=== PATIENT | female | born 1945 | race Caucasian/White ===

== ENCOUNTER → 2017-05-17 | Outpatient (CLI) | payer MEDICARE, BC ==
--- NOTE | 2017-05-17 13:28 | MR ---
EXAMINATION TYPE: MR cervical spine wo con DATE OF EXAM: 05/17/2017 COMPARISON: Prior MRI cervical spine 02/03/2015 HISTORY: other csp degeneration, csp radiculopathy TECHNIQUE: Multiplanar, multisequence images of the cervical spine were acquired. C2-C3: No evidence for degenerative disc disease. No disc bulge/herniation or protrusion. No Canal stenosis. Foramina are patent bilaterally. C3-C4: Small posterior disc bulge causes slight anterior mass effect on the thecal sac. No significan t foraminal encroachment or central stenosis. C4-C5: Posterior broad-based disc bulge causes minimal anterior mass effect on the thecal sac. No sig nificant foraminal encroachment or central stenosis. C5-C6: Mild left-sided foraminal encroachment due to lateral extension of endplate disc complex left greater than right. Small posterior extension of endplate disc complex causes minimal anterior mass e ffect on the thecal sac. C6-C7: Small posterior broad-based disc bulge causes minimal anterior mass effect on the thecal sac. No significant stenosis or foraminal encroachment. C7-T1: No evidence for degenerative disc disease. No disc bulge/herniation or protrusion. No Canal stenosis. Foramina are patent bilaterally. Cervical segments are intact. There is normal alignment. Cervical spinal cord is of normal signal. Craniovertebral junction relationships are within normal limits. Multilevel spondylosis is present, there is endplate discogenic marrow signal change, loss of disc height and signal present at C4-5, C 5-6. IMPRESSION: Findings are essentially stable. Degenerative disc disease as described.
== END | disposition home or self-care (01) ==
LOC: RADMRIMAIN 10:42
PROVIDERS: ATTEND Internal Medicine
DX: M50.10 Cervical disc disorder with radiculopathy, unspecified cervical region (principal)
CPT/HCPCS: 72141

== ENCOUNTER 2018-01-05 11:50 | Day surgery (SDC) | payer MEDICARE, BC ==
[2018-01-04 09:40] VITALS: BMI 22.8
[~2018-01-05 11:50] MED LIST: LACTATED RINGERS 1,000 ML IV SCH
[2018-01-05] MEDS ORDERED: LACTATED RINGERS 1,000 ML IV ONE (12:36)
[2018-01-05 12:57] VITALS: RESP 16; TEMP 96.7
[2018-01-05 13:09] LABS: HCT 35.5 % (34.0-46.0); HGB 12.3 gm/dL (11.4-16.0); MCH 32.1 pg (25.0-35.0); MCHC 34.6 g/dL (31.0-37.0); MCV 92.8 fL (80.0-100.0); Mean Platelet Volume 6.5; Platelet Count 314 k/uL (150-450); RBC 3.82 m/uL (3.80-5.40); WBC 5.5 k/uL (3.8-10.6)
[2018-01-05] MEDS ORDERED: MIDAZOLAM 2 MG/2 ML VIAL ONE (13:17)
[2018-01-05] MEDS ORDERED: PROPOFOL 10 MG/ML 20 ML VIAL IV ONE (13:17)
--- NOTE | 2018-01-05 13:40 | P.PCN ---
Date of Procedure: 01/05/18 Procedure(s) Performed: Brief history: Patient is a pleasant 72-year-old white female, scheduled for an elective upper endoscopy as well as colonoscopy as a part of evaluation of chronic diarrhea and intermittent lower abdominal pain for the last 3 months duration. She has been recently from 7-8 a day which are loose to watery in consistency but no blood or mucus in the stool. She had stool studies and were negative. She tried Questran as well as Lomotil with no help. Procedure performed: Esophagogastroduodenoscopy with biopsy Colonoscopy with biopsy Preoperative diagnosis: Chronic diarrhea and lower abdominal pain Anesthesia: MAC Procedure: After informed consent was obtained from the patient was brought into the endoscopy unit and IV sedation was administered by anesthesia under continuous monitoring. Initially upper endoscopy was done. The Olympus GF 160 video endoscope was inserted inserted into the mouth and esophagus intubated without any difficulty and was gradually advanced into the stomach and duodenum and carefully examined. The bulb and second part of the duodenum appeared normal. Abstinent from the duodenum to rule out celiac disease. The scope was then withdrawn into the stomach adequately insufflated with air and upon careful examination the antrum and body, cardia and fundus appeared normal. Small gastric polyps noted in the body of the stomach that were biopsied. The scope was then withdrawn into the esophagus. Small hiatal hernia noted. The GE junction was located at 40 cm to the incisors. It appeared slightly irregular with no erythema erosions.. Rest of the esophagus appeared normal. Patient tolerated the procedure well. At this time the patient continued to remain sedation. Initial digital rectal examination was normal. Olympus CF 160 video colonoscope was then inserted into the rectum and gradually advanced to the cecum without any difficulty. Careful examination was performed as the scope was gradually being withdrawn. The prep was excellent. The cecum, ascending colon, transverse colon, descending colon, sigmoid colon and rectum appeared normal. Random biopsies were done from ascending and descending colon to rule out microscopic/ collagenous colitis. Retroflexion was performed in the rectum and no lesions were noted. Patient tolerated the procedure well. Impression: 1. Upper endoscopy revealed small gastric polyps and small hiatal hernia. 2. Colonoscopy was essentially within normal limits with no evidence of colitis or colorectal neoplasia Recommendations: Findings of this examination were discussed with the patient as well as her family. She was advised to follow with the biopsy results. She'll be seen in office in 2 weeks.
[2018-01-05 14:01] VITALS: BP 136/73; PULSE 69
[2018-01-05 17:40] LABS: Erythrocyte Sedimentation Rate 13 mm/hr (0-20)
[2018-01-05 19:43] LABS: Gliadin AB IgA, Unit 1.2 U/mL
== END 2018-01-05 14:24 | disposition home or self-care (01) ==
LOC: ORWHC2ENDO 11:50
PROVIDERS: ATTEND Internal Medicine Gastroenterology
DX: K29.80 Duodenitis without bleeding (principal); K31.7 Polyp of stomach and duodenum; K52.839 Microscopic colitis, unspecified; K44.9 Diaphragmatic hernia without obstruction or gangrene; I10 Essential (primary) hypertension; J44.9 Chronic obstructive pulmonary disease, unspecified; E07.9 Disorder of thyroid, unspecified; K21.9 Gastro-esophageal reflux disease without esophagitis; Z79.890 Hormone replacement therapy; Z79.899 Other long term (current) drug therapy; Z79.51 Long term (current) use of inhaled steroids
CPT/HCPCS: 85652; 85027; 86140; 83516 ×4; 45380; 43239; J2250; J2704; 88305; 88313

== ENCOUNTER → 2018-02-14 | Outpatient (CLI) | payer MEDICARE, BC ==
--- NOTE | 2018-02-14 12:02 | BD ---
EXAMINATION TYPE: Axial Bone Density DATE OF EXAM: 02/14/2018 CLINICAL HISTORY: Height: 62.25 Weight: 124 FRAX RISK QUESTIONS: Alcohol (3 or more units per day): no Family History (Parent hip fracture): yes, mother Glucocorticoids (More than 3mos): Symbicort on & off (Ex: prednisone, prednisolone, methylprednisolone, dexamethasone, and hydrocortisone). History of Fracture in Adulthood: no Secondary Osteoporosis: 1. Type 1 Diabetes: no 2. Hyperthyroidism: no 3. Menopause before 45: yes, hysterectomy age 38 4. Malnutrition: big weight loss due to colitis 5. Chronic liver disease: no Rheumatoid Arthritis: no Current Tobacco Use: no RISK FACTORS HISTORY OF: Family History of Osteoporosis: yes Active: yes Diet low in dairy products/other sources of calcium: somewhat, but one serving of ice cream a day Postmenopausal woman: yes Take estrogen and/or progesterone medications: not now How long: age [age] Lost more than 2 inches in height since high school: unsure, states height was perhaps 64 inches at o ne time Frequent falls: no Poor Health: somewhat Hyperparathyroidism: no Adrenal Insufficiency: no MEDICATIONS: Prednisone or other steroids: Symbicort How Long: on & off Thyroid Medications: yes Which medication: Levothyroxine How Long: less than 10 years Osteoporosis Medications: no Additional Medications: calcium Additional History: degenerative disc disease C-Spine EXAM MEASUREMENTS: Bone mineral densitometry was performed using the [employer] System. Bone mineral density as measured about the Lumbar spine is: ----- L1-L4(G/cm2): 1.106 T Score Values are as follows: ----- L2: -1.3 ----- L3: -0.2 ----- L4: 0.0 ----- L1-L4: -0.6 Bone mineral density BASELINE Bone mineral density about the R hip (g/cm2): 0.976 Bone mineral density about the L hip (g/cm2): 0.860 T Score values are as follows: -----R Neck: -0.4 -----L Neck: -1.3 -----R Total: -0.5 -----L Total: -1.0 Bone mineral density BASELINE IMPRESSION: Osteopenia about the bilateral femora. NOTE: T-SCORE=SD OF THE YOUNG ADULT MEAN.
--- NOTE | 2018-02-16 10:18 | MM ---
Reason for exam: screening (asymptomatic). Last mammogram was performed 4 years and 6 months ago. History: Patient is postmenopausal. Took estrogen for 2 years beginning at age 38. Physical Findings: A clinical breast exam by your physician is recommended on an annual basis and results should be correlated with mammographic findings. MG 3D Screening Mammo W/Cad Bilateral CC and MLO view(s) were taken. Prior study comparison: August 15, 2013, mammogram, performed at [facility]. August 12, 2011, mammogram, performed at [facility]. The breast tissue is heterogeneously dense. This may lower the sensitivity of mammography. No significant changes when compared with prior studies. ASSESSMENT: Negative, BI-RAD 1 RECOMMENDATION: Routine screening mammogram of both breasts in 1 year.
== END | disposition home or self-care (01) ==
LOC: RADMAMWWP 09:35
PROVIDERS: ATTEND Internal Medicine
DX: Z12.31 Encounter for screening mammogram for malignant neoplasm of breast (principal); M85.88 Other specified disorders of bone density and structure, other site; Z78.0 Asymptomatic menopausal state
CPT/HCPCS: 77063; 77067; 77080

== ENCOUNTER → 2018-11-07 | Outpatient (CLI) | payer MEDICARE, BC ==
[2018-11-07 17:27] LABS: Basophils % (A) 1 %; Eosinophils # (A) 0.2 k/uL (0-0.7); Eosinophils % (A) 2 %; HCT 37.8 % (34.0-46.0); HGB 12.6 gm/dL (11.4-16.0); Lymphocytes # (A) 1.2 k/uL (1.0-4.8); Lymphocytes % (A) 17 %; MCH 32.8 pg (25.0-35.0); MCHC 33.4 g/dL (31.0-37.0); MCV 98.3 fL (80.0-100.0); Mean Platelet Volume 6.8; Monocytes # (A) 0.4 k/uL (0-1.0); Monocytes % (A) 6 %; Neutrophils # (A) 4.9 k/uL (1.3-7.7); Neutrophils % (A) 73 %; Platelet Count 343 k/uL (150-450); RBC 3.84 m/uL (3.80-5.40); RDW 12.7 % (11.5-15.5); WBC 6.8 k/uL (3.8-10.6)
[2018-11-07 18:30] LABS: Erythrocyte Sedimentation Rate 17 mm/hr (0-20)
[2018-11-08 00:29] LABS: ALT 20 U/L (8-44); AST 25 U/L (13-35); Albumin/Globulin Ratio 2.15 (1.60-3.17); Alkaline Phosphatase 65 U/L (41-126); C Reactive Protein <0.4 mg/dL (0.0-0.8); Calcium 9.6 mg/dL (8.7-10.3); Carbon Dioxide 27.6 mmol/L (21.6-31.8); Chloride 104 mmol/L (96-109); Glucose 80 mg/dL (70-110); Potassium 3.7 mmol/L (3.5-5.5); Sodium 140 mmol/L (135-145); Total Bilirubin 0.2 mg/dL (0.3-1.2); Total Protein 6.3 g/dL (6.2-8.2)
== END ==
LOC: LABWHC1 16:00
PROVIDERS: ATTEND Internal Medicine Gastroenterology
DX: K52.9 Noninfective gastroenteritis and colitis, unspecified (principal); R63.4 Abnormal weight loss
CPT/HCPCS: 36415; 80053; 85025; 85652; 86140

== ENCOUNTER → 2018-11-08 | Outpatient (CLI) | payer MEDICARE, BC | END | disposition home or self-care (01) | LOC: LABWHC1 15:43 | PROVIDERS: ATTEND Internal Medicine Gastroenterology | DX: R63.4 Abnormal weight loss (principal); K52.9 Noninfective gastroenteritis and colitis, unspecified | CPT/HCPCS: 82656 ==

== ENCOUNTER → 2018-11-16 | Outpatient (CLI) | payer MEDICARE, BC ==
--- NOTE | 2018-11-16 15:07 | CT ---
EXAMINATION TYPE: CT abdomen pelvis w con DATE OF EXAM: 11/16/2018 COMPARISON: None INDICATION: History of colitis. 30 lb weight loss. DLP: 766 mGycm, Automated exposure control for dose reduction was used. CONTRAST: 100 mL of Isovue 300. Study performed with Oral Contrast TECHNIQUE: Axial images were obtained from above the diaphragm to the pubic rami in the axial plane a t 5 mm thick sections. Reconstructed images are reviewed on the computer in the coronal plane. FINDINGS: Limited CT sections are obtained the lung bases. The lung bases are clear. CT ABDOMEN: Liver: Normal Spleen: Normal Pancreas: Normal Adrenal glands: The adrenal glands are normal. Gallbladder: Normal Kidneys: No masses are evident. No hydronephrosis is present. No cysts are present. Delayed images were obtained through the kidneys,. There is ar 1.9 cm cyst measuring 9 Hounsfield units at superior lateral left kidney. Aorta: Vascular calcification is within the aorta. Inferior vena cava: Normal. CT PELVIS: Loops of bowel within the abdomen and pelvis are normal. There are loops of bowel which are incom pletely distended or lack oral contrast limiting their evaluation. Fecal debris is scattered through the colon. Contrast extends to the descending colon region. Appendix: Not identified. No suspicious tubular structures or inflammatory changes are evident. Urinary bladder: Normal. Genitourinary structures: Uterus is unremarkable. Adnexal regions are clear. No free fluid is within the pelvis or abdomen. Osseous structures: No suspicious lytic or sclerotic lesions. Mild facet degenerative changes in lowe r lumbar spine IMPRESSIONS: 1. Fecal debris within the colon. No obstruction is evident. No suspicious changes for acute colitis is evident.
== END | disposition home or self-care (01) ==
LOC: RADCTMAIN 12:43
PROVIDERS: ATTEND Internal Medicine Gastroenterology
DX: R19.5 Other fecal abnormalities (principal); R63.4 Abnormal weight loss
CPT/HCPCS: 74177; Q9967

== ENCOUNTER → 2019-04-05 | Outpatient (CLI) | payer MEDICARE, BC ==
--- NOTE | 2019-04-05 11:03 | XR ---
EXAMINATION TYPE: XR chest 2V DATE OF EXAM: 04/05/2019 COMPARISON: NONE TECHNIQUE: PA and lateral views submitted. HISTORY: Cough FINDINGS: There is a large right hilar mass suspicious for malignancy measuring approximately 4.3 cm. No consol idative process, pleural effusion or pneumothorax. No interstitial edema. Hypertrophic and degenerati ve change spine. Atherosclerotic change aorta. Hyperinflation suggests COPD. IMPRESSION: 1. Large right hilar mass suspicious for malignancy. A Yellow level critical message alert has been initiated for Joni Wong MD via the [employer] Critical Results System on 04/05/2019 11:00 AM. This message alert has been sent to Joni Wong MD via the preferences provided by the clinician for the receipt of Radiology Critical Findings. Message ID [id number].
== END | disposition home or self-care (01) ==
LOC: RADXRMAIN 10:27
PROVIDERS: ATTEND Internal Medicine
DX: R04.2 Hemoptysis (principal)
CPT/HCPCS: 71046

== ENCOUNTER → 2019-04-16 | Outpatient (CLI) | payer MEDICARE, BC ==
[2019-04-16 17:34] LABS: African American GFR (CKD) 83.6 (60.0-200.0)
== END | disposition home or self-care (01) ==
LOC: LABWHC1 10:12
PROVIDERS: ATTEND Internal Medicine
DX: Z01.812 Encounter for preprocedural laboratory examination (principal)
CPT/HCPCS: 36415; 82565; 84520

== ENCOUNTER → 2019-04-20 | Outpatient (CLI) | payer MEDICARE, BC ==
--- NOTE | 2019-04-20 16:50 | CT ---
EXAMINATION TYPE: CT chest w con DATE OF EXAM: 04/20/2019 COMPARISON: HISTORY: Hemoptysis, cough, right sided chest pain. CT DLP: 223.9 mGycm Automated exposure control for dose reduction was used. CONTRAST: CT scan of the chest is performed with IV Contrast, patient injected with 100 mL of Isovue M300. FINDINGS: There is diffuse pulmonary emphysema. There is 3 cm somewhat rounded infiltrate in the posterior segm ent right upper lobe adjacent to the major fissure. There is massive right side bronchial adenopathy. There are masses that measure up to 3 cm. There are pretracheal enlarged lymph nodes that measure up to 2 cm. There is no adenopathy on the left side. There is a noncalcified one similar nodule in the posterior left lower lobe. There is minimal atelect asis right posterior lung base. Thoracic spine appears intact. I see no bony destructive process. The re is small pericardial effusion. Heart size is normal. I see no filling defects in the pulmonary art eries. Thoracic aorta is intact without evidence of aneurysm or dissection. IMPRESSION: Massive right bronchial adenopathy and mediastinal adenopathy consistent with malignancy . Masslike infiltrate posterior segment right upper lobe suspicious for tumor. Subpleural left lower lobe nodule also suspicious for tumor.
== END | disposition home or self-care (01) ==
LOC: RADCTMAIN 04-13 09:47
PROVIDERS: ATTEND Internal Medicine
DX: R59.0 Localized enlarged lymph nodes (principal); R91.8 Other nonspecific abnormal finding of lung field; R91.1 Solitary pulmonary nodule
CPT/HCPCS: 71260; Q9967

== ENCOUNTER → 2019-05-03 | Outpatient (CLI) | payer MEDICARE, BC ==
--- NOTE | 2019-05-06 07:22 | PE ---
EXAMINATION TYPE: PET CT fusion skull to thigh DATE OF EXAM: 05/03/2019 COMPARISON: Chest CT April 20, 2019. CT abdomen and pelvis November 16, 2018. HISTORY: Lung mass, abnormal CT TECHNIQUE: Following the intravenous administration of 12.48 mCi of F-18 FDG, whole body images are performed from the skull base to the midthigh. Images are reviewed on the computer in the coronal, a xial, and sagittal planes. Reconstructed rotating images are created on independent workstation and reviewed on the computer. A noncontrast CT is performed in conjunction with the PET scan. SCAN: Initial scan. FINDINGS: SKULL BASE AND NECK: There are abnormal hypermetabolic subcentimeter right supraclavicular lymph nod e axial image 62, max SUV is 4.07. CHEST, MEDIASTINUM, AND HILAR REGION: Redemonstration of advanced emphysematous change most prominent in the upper lungs. Redemonstration of large right hilar mass with hypermetabolic uptake with signif icant bronchial narrowing of upper middle and lower lung bronchi and suspected mediastinal invasion m easuring approximately 4.5 x 4.3 cm axial image 96, max SUV is 9.04. There is persistent 1.1 cm posterior left lower lobe nodule image 111, max SUV is 2.7. There are additional abnormal paratracheal, pericarinal, and subcarinal hypermetabolic lymph nodes. F or reference enlarged subcarinal lymph node has maximum SUV 8.28 on axial image 97.s ABDOMEN AND PELVIS: Abnormal left adrenal mass measures 2.8 x 1.9 cm axial image 140 is new From Apri l CT, max SUV is 12.08. New smaller hypermetabolic right adrenal mass axial image 143, max SUV is 7. 33. Nonspecific somewhat diffuse prominent bowel uptake noted. OSSEOUS STRUCTURES: No areas of definitive abnormal hypermetabolic uptake. OTHER CT: Moderate calcified plaque bilateral carotid bulb level. Small pericardial effusion. Small r ight-sided pleural effusion. Moderate calcified plaque of the aorta extends into iliac branch vessels. Some prominent fluid filled bowel loops. Facet arthropathy lower lumbar levels. IMPRESSION: Confirmation of advanced stage lung cancer as detailed above.
== END | disposition home or self-care (01) ==
LOC: RADPETMAIN 16:25
PROVIDERS: ATTEND Internal Medicine Critical Care Medicine
DX: C34.32 Malignant neoplasm of lower lobe, left bronchus or lung (principal); E27.8 Other specified disorders of adrenal gland; I65.23 Occlusion and stenosis of bilateral carotid arteries; I31.3 Pericardial effusion (noninflammatory); I70.0 Atherosclerosis of aorta; M12.88 Other specific arthropathies, not elsewhere classified, other specified site
CPT/HCPCS: 78815; A9552

== ENCOUNTER → 2019-05-07 | Day surgery (SDC) | payer MEDICARE, BC ==
[2019-05-02 14:32] VITALS: BMI 19.2
[~2019-05-07] MED LIST changes: +ALBUTEROL NEB (CONC) 2.5 MG/0.5 ML INHALATION ONE; +ATROPINE SULFATE 0.4 MG/ML 1 ML VIAL IM ONE; +DEXAMETHASONE SOD PHOSPHATE 10 MG/ML 1 ML VIAL IV ONE; +HYDROmorphone 0.5 MG/0.5 ML SYRINGE IVP PRN; +LACTATED RINGERS 1,000 ML IV ONE; +LIDOCAINE 1% 20 ML VIAL (10MG/ML) FOR IV START INTRADERMA ONE; +LIDOCAINE 1% INJ 10MG/ML (20 ML MDV) ONE; +LIDOCAINE 2% (PF) 20 MG/ML 5 ML VIAL INHALATION ONE; +LIDOCAINE VISCOUS 300 MG/15 ML CUP MUCOUS MEM ONE; +MIDAZOLAM 2 MG/2 ML VIAL IV PRN; +MIDAZOLAM 2 MG/2 ML VIAL ONE; +ONDANSETRON 4 MG/2 ML VIAL IVP ONE; +PROPOFOL 10 MG/ML 20 ML VIAL IV ONE; +SODIUM CHLORIDE 0.9% 1,000 ML IV SCH; +SUCCINYLCHOLINE CHLORIDE 100 MG/5 ML SYR IV ONE; +fentaNYL (PF) 50 MCG/ML 2 ML AMP ONE
[2019-05-07 11:36] LABS: African American GFR (CKD) >90 (>60 ml/min/1.73 sqM); Anion Gap 8 mmol/L; Blood Urea Nitrogen 14 mg/dL (7-17); Calcium 9.7 mg/dL (8.4-10.2); Carbon Dioxide 29 mmol/L (22-30); Chloride 103 mmol/L (98-107); Glucose 92 mg/dL (74-99); Potassium 4.1 mmol/L (3.5-5.1); Sodium 140 mmol/L (137-145)
[2019-05-07 14:14] VITALS: RESP 16; TEMP 97.1
--- NOTE | 2019-05-07 15:45 | XR ---
EXAMINATION TYPE: XR chest 1V portable DATE OF EXAM: 05/07/2019 COMPARISON: Chest x-ray 04/05/2019 HISTORY: Status post lung biopsy TECHNIQUE: Single frontal view of the chest is obtained. FINDINGS: Abnormal right hilar density is again noted. There is no evident pneumothorax or pleural e ffusion. IMPRESSION: No evident complication status post lung biopsy.
[2019-05-07 15:53] VITALS: BP 114/69; PULSE 72
--- NOTE | 2019-05-07 16:29 | CT ---
EXAMINATION TYPE: CT Chest jose miguel Talley Protocol DATE OF EXAM: 05/07/2019 COMPARISON: Prior PET CT 05/03/2019, chest CT 04/20/2019 HISTORY: pre bronchial navigation, right lung mass CT DLP: 559 mGycm Automated exposure control for dose reduction was used. Helical imaging through the chest. FINDINGS: Scanning was performed for biopsy planning. The left lower lobe lung nodule, bilateral emphysematous changes, right hilar mass are all again noted. Lack of contrast could compromise sensitivity. There a re dense coronary artery calcifications. Interval development of a right pleural effusion which is sm all is noted. There is mediastinal adenopathy, right mainstem bronchus shows mass effect and is narro wed. Sclerotic change present at the sternal clavicular joint on the right, there is a vacuum phenomenon, local arthropathy change. Left adrenal mass is present shows low attenuation. IMPRESSION: SCANNING FOR BIOPSY PLANNING PURPOSES.
[2019-05-07 19:58] LABS: Appearance,BF Bloody; Color,BF Red; Nucleated Cells, Body Fluid 10 /uL; RBC, Body Fluid 10150 /uL
--- NOTE | 2019-05-07 21:51 | PCN ---
PROCEDURE NOTE PROCEDURE: Electromagnetic navigational bronchoscopy. OPERATORS: 1. Dr. Smiley. 2. Dr. Sneed. PREOPERATIVE DIAGNOSIS: Rule out lung cancer. POSTOPERATIVE DIAGNOSIS: Rule out lung cancer. Dr. Nixon and [employer] F[employer] INST[employer]ER provided general anesthesia. PROCEDURE DESCRIPTION: The patient's procedure was done in the operating room #2. There was informed consent and universal timeout. I did speak to the patient before the procedure. Initially, before the patient was actually intubated and under the effects of general anesthesia, the patient was lightly sedated and we took a look at the vocal cords because she complained of hoarseness. The vocal cords appeared to move normally. Next, the patient was intubated. After she was placed under the effects of general anesthesia, the bronchoscope was inserted through the bronchoscope adapter connected to the endotracheal tube. The procedure took place primarily on the right side. We were working primarily in the right mainstem subcarinal region on the right side and also in the right middle lobe. We did multiple sampling in those areas under electromagnetic guidance. We did transbronchial needle aspiration, multiple endobronchial and transbronchial biopsies, brushes, washes. Pathology was in the room and was convinced that there was probably [id number] lung cancer based on our first pass with the needle. We got additional samples afterwards. The patient tolerated the procedure well. There were no immediate complications. There was minimal bleeding. The patient was stable throughout the procedure. Once adequate sampling had been done, including the brushes, biopsies, washes, needle aspirations, the bronchoscope was withdrawn. The patient will be recovered. There was no immediate complication. A chest x-ray was ordered. MMODL / IJN: [id number] /
== END | disposition home or self-care (01) ==
LOC: ORWHC2ENDO 10:28
PROVIDERS: ATTEND Internal Medicine Critical Care Medicine
DX: C34.01 Malignant neoplasm of right main bronchus (principal); I10 Essential (primary) hypertension; E78.5 Hyperlipidemia, unspecified; J45.909 Unspecified asthma, uncomplicated; F32.9 Major depressive disorder, single episode, unspecified; M85.80 Other specified disorders of bone density and structure, unspecified site; M19.90 Unspecified osteoarthritis, unspecified site; E03.9 Hypothyroidism, unspecified; F41.9 Anxiety disorder, unspecified; J44.9 Chronic obstructive pulmonary disease, unspecified; K21.9 Gastro-esophageal reflux disease without esophagitis; G43.909 Migraine, unspecified, not intractable, without status migrainosus; K52.9 Noninfective gastroenteritis and colitis, unspecified; Z87.891 Personal history of nicotine dependence; Z90.710 Acquired absence of both cervix and uterus; Z79.890 Hormone replacement therapy; Z79.51 Long term (current) use of inhaled steroids; Z79.899 Other long term (current) drug therapy; Z82.0 Family history of epilepsy and other diseases of the nervous system
CPT/HCPCS: 93005; 88104; 88108; 88305; 88173; 80048; 89050; 88342; 88341; 71045; 71250; 31629; 31625; 31623; 31627; J2250; J1100; J2405; J2001; J3010; J0330; J2704; 31633

== ENCOUNTER → 2019-05-20 | Outpatient (CLI) | payer MEDICARE, BC ==
--- NOTE | 2019-05-21 01:40 | MR ---
EXAMINATION TYPE: MR brain wo/w con DATE OF EXAM: 05/20/2019 COMPARISON: None HISTORY: Lung Cancer / Headaches TECHNIQUE: Multiplanar, multisequence images of the brain and brainstem is performed without and with IV contras t, utilizing 5.5 mL intravenous Gadavist . FINDINGS: There is diffuse cerebral cortical atrophy. There is no mass effect nor midline shift. Ther e is no sign of intracranial hemorrhage. There is a single 8 mm focus of cortical increased signal in the medial posterior right parietal lobe on the diffusion images. The brainstem is intact. On the T2 and FLAIR images there are scattered multiple foci of white matter high signal around the l ateral ventricles. These measure up to 6 mm. Total number is less than 20. Most of the lesions are 2 to 3 mm. There is no evidence of intracranial hemorrhage. There is no pathologic enhancement. There i s normal contrast opacification of the venous sinuses. The corpus callosum is intact. Sella turcica is intact. IMPRESSION: Mild cerebral atrophy. Small cortical high signal focus on the diffusion images right posterior parie deborah lobe could relate to acute tiny cortical infarct. Scattered white matter high signal foci as above mostly at the whitehead-white matter junction probably re lated to areas of chronic small vessel ischemia.
== END | disposition home or self-care (01) ==
LOC: RADMRIMAIN 13:05
PROVIDERS: ATTEND Internal Medicine Hematology & Oncology
DX: G31.9 Degenerative disease of nervous system, unspecified (principal); C34.11 Malignant neoplasm of upper lobe, right bronchus or lung
CPT/HCPCS: 70553; A9585

== ENCOUNTER 2019-06-02 10:15 | Inpatient (IN) | payer MEDICARE, BC ==
[2019-06-02] MEDS ORDERED: ASPIRIN 81 MG PO STA (10:43)
[2019-06-02] MEDS ORDERED: IPRATROPIUM-ALBUTEROL 3 ML NEB INHALATION STA (10:43)
--- NOTE | 2019-06-02 10:55 | ED ---
SOB HPI - General Chief Complaint: Shortness of Breath Stated Complaint: CHE Time Seen by Provider: 06/02/19 10:36 Source: patient, RN notes reviewed Mode of arrival: wheelchair Limitations: no limitations - History of Present Illness Initial Comments: 73-year-old female presents emergency Department chief complaint of chest pain, shortness of breath. Patient states his symptoms started around 6 AM this morning. She states that she feels across her upper chest and back region. Patient states that she was diagnosed with lung cancer 2 weeks ago. They have not decided on current treatment and which she is currently seen Dr. Bear. Patient denies any recent. The child she doesn't at that she had a lung biopsy by Dr. Smiley approximately 2-3 weeks ago and S1 symptoms seemed to worsen. Patient denies any prior cardiac disease including hypertension, hyperlipidemia diabetes. Patient denies any current nausea vomiting. Patient states that she did have some ongoing shortness of breath with exertion but this a gentleman her normal baseline. Patient also states that she is currently being treated for colitis. Patient states that she is on Lomotil and another medication by GI. She suffered colitis for a while. - Related Data Home Medications Medication Instructions Recorded Confirmed Budesonide-Formot 160-4.5 Mcg 2 puff INHALATION RT-BID 01/04/18 06/02/19 [Symbicort 160-4.5 Mcg Inhaler] Calcium Carbonate [Calcium] 600 mg PO DAILY 01/04/18 06/02/19 Levothyroxine Sodium [Synthroid] 50 mcg PO DAILY 01/04/18 06/02/19 Metoprolol Succinate (ER) [Toprol 50 mg PO DAILY 01/04/18 06/02/19 Xl] Montelukast [Singulair] 10 mg PO DAILY 01/04/18 06/02/19 Multivitamins, Thera [Multivitamin 1 tab PO DAILY 01/04/18 06/02/19 (formulary)] Omeprazole 20 mg PO DAILY 01/04/18 06/02/19 Diphenox-Atrop 2.5-0.025 mg 2 tab PO TID 05/02/19 06/02/19 [Lomotil] Budesonide [Budesonide EC] 9 mg PO W/BRKFST 06/02/19 06/02/19 DULoxetine HCL [Cymbalta] 60 mg PO DAILY 06/02/19 06/02/19 Escitalopram [Lexapro] 20 mg PO DAILY 06/02/19 06/02/19 Folic Acid 1 mg PO DAILY 06/02/19 06/02/19 Prochlorperazine Maleate 10 mg PO Q6H PRN 06/02/19 06/02/19 Allergies Allergy/AdvReac Type Severity Reaction Status Date / Time No Known Allergies Allergy Verified 06/02/19 12:07 Review of Systems ROS Statement: Those systems with pertinent positive or pertinent negative responses have been documented in the HPI. ROS Other: All systems not noted in ROS Statement are negative. Past Medical History Past Medical History: Asthma, COPD, GERD/Reflux, Hypertension, Thyroid Disorder Additional Past Medical History / Comment(s): MIGRAINES, ARTHRITIS SPINE, CHRONIC DIARRHEA SINCE SEPTEMBER. History of Any Multi-Drug Resistant Organisms: None Reported Past Surgical History: Appendectomy, Hysterectomy, Tonsillectomy Additional Past Surgical History / Comment(s): PILONIDAL CYST Past Anesthesia/Blood Transfusion Reactions: No Reported Reaction, Motion Sickness Past Psychological History: Anxiety, Depression Past Alcohol Use History: None Reported - Past Family History Mother Family Medical History: No Reported History General Exam Limitations: no limitations General appearance: alert, in no apparent distress, anxious Head exam: Present: atraumatic, normocephalic, normal inspection Eye exam: Present: normal appearance, PERRL, EOMI. Absent: scleral icterus, conjunctival injection, periorbital swelling ENT exam: Present: normal exam, normal oropharynx, mucous membranes moist Neck exam: Present: normal inspection. Absent: tenderness, meningismus, lymp hadenopathy Respiratory exam: Present: respiratory distress (Moderate), wheezes, decreased breath sounds. Absent: normal lung sounds bilaterally, rales, rhonchi, stridor Cardiovascular Exam: Present: normal rhythm, tachycardia, normal heart sounds. Absent: systolic murmur, diastolic murmur, rubs, gallop, clicks GI/Abdominal exam: Present: soft, normal bowel sounds. Absent: distended, tenderness, guarding, rebound, rigid Neurological exam: Present: alert, oriented X3 Skin exam: Present: warm, dry, intact, normal color. Absent: rash Course Vital Signs 06/02/19 06/02/19 06/02/19 10:19 10:52 10:58 Temperature 97.8 F Pulse Rate 109 H 108 H 104 H Respiratory 26 H Rate Blood Pressure 147/72 O2 Sat by Pulse 83 L Oximetry 06/02/19 06/02/19 06/02/19 12:00 12:30 13:00 Temperature Pulse Rate 78 75 82 Respiratory 18 Rate Blood Pressure 147/75 142/81 135/75 O2 Sat by Pulse 95 95 91 L Oximetry Medical Decision Making - Lab Data Result diagrams: 06/02/19 10:52 06/02/19 10:52 Lab Results 06/02/19 06/02/19 06/02/19 Range/Units 10:52 10:52 10:52 WBC 20.7 H (3.8-10.6) k/uL RBC 4.20 (3.80-5.40) m/uL Hgb 13.2 (11.4-16.0) gm/dL Hct 40.2 (34.0-46.0) % MCV 95.8 (80.0-100.0) fL MCH 31.4 (25.0-35.0) pg MCHC 32.7 (31.0-37.0) g/dL RDW 12.7 (11.5-15.5) % Plt Count 268 (150-450) k/uL Neutrophils % 87 % Lymphocytes % 7 % Monocytes % 3 % Eosinophils % 2 % Basophils % 0 % Neutrophils # 17.9 H (1.3-7.7) k/uL Lymphocytes # 1.4 (1.0-4.8) k/uL Monocytes # 0.7 (0-1.0) k/uL Eosinophils # 0.5 (0-0.7) k/uL Basophils # 0.1 (0-0.2) k/uL PT (9.0-12.0) sec INR (<1.2) APTT (22.0-30.0) sec D-Dimer (<0.60) mg/L FEU Sodium 137 (137-145) mmol/L Potassium 3.9 (3.5-5.1) mmol/L Chloride 103 (98-107) mmol/L Carbon Dioxide 25 (22-30) mmol/L Anion Gap 9 mmol/L BUN 13 (7-17) mg/dL Creatinine 0.66 (0.52-1.04) mg/dL Est GFR (CKD-EPI)AfAm >90 (>60 ml/min/1.73 sqM) Est GFR (CKD-EPI)NonAf 87 (>60 ml/min/1.73 sqM) Glucose 77 (74-99) mg/dL Plasma Lactic Acid Mukesh (0.7-2.0) mmol/L Calcium 9.5 (8.4-10.2) mg/dL Magnesium 2.0 (1.6-2.3) mg/dL Total Bilirubin 0.6 (0.2-1.3) mg/dL AST 27 (14-36) U/L ALT 24 (9-52) U/L Alkaline Phosphatase 61 (38-126) U/L Troponin I (0.000-0.034) ng/mL NT-Pro-B Natriuret Pep 640 pg/mL Total Protein 6.9 (6.3-8.2) g/dL Albumin 3.9 (3.5-5.0) g/dL 06/02/19 06/02/19 06/02/19 Range/Units 10:52 10:52 12:00 WBC (3.8-10.6) k/uL RBC (3.80-5.40) m/uL Hgb (11.4-16.0) gm/dL Hct (34.0-46.0) % MCV (80.0-100.0) fL MCH (25.0-35.0) pg MCHC (31.0-37.0) g/dL RDW (11.5-15.5) % Plt Count (150-450) k/uL Neutrophils % % Lymphocytes % % Monocytes % % Eosinophils % % Basophils % % Neutrophils # (1.3-7.7) k/uL Lymphocytes # (1.0-4.8) k/uL Monocytes # (0-1.0) k/uL Eosinophils # (0-0.7) k/uL Basophils # (0-0.2) k/uL PT 10.0 (9.0-12.0) sec INR 0.9 (<1.2) APTT 20.4 L (22.0-30.0) sec D-Dimer 2.86 H (<0.60) mg/L FEU Sodium (137-145) mmol/L Potassium (3.5-5.1) mmol/L Chloride (98-107) mmol/L Carbon Dioxide (22-30) mmol/L Anion Gap mmol/L BUN (7-17) mg/dL Creatinine (0.52-1.04) mg/dL Est GFR (CKD-EPI)AfAm (>60 ml/min/1.73 sqM) Est GFR (CKD-EPI)NonAf (>60 ml/min/1.73 sqM) Glucose (74-99) mg/dL Plasma Lactic Acid Mukesh 2.3 H* (0.7-2.0) mmol/L Calcium (8.4-10.2) mg/dL Magnesium (1.6-2.3) mg/dL Total Bilirubin (0.2-1.3) mg/dL AST (14-36) U/L ALT (9-52) U/L Alkaline Phosphatase (38-126) U/L Troponin I <0.012 (0.000-0.034) ng/mL NT-Pro-B Natriuret Pep pg/mL Total Protein (6.3-8.2) g/dL Albumin (3.5-5.0) g/dL - EKG Data -: EKG Interpreted by Me EKG Comments: EKG performed at 10:37 sinus rhythm with short OR rate of 76 OR 108 QRS 68 QT/QTC 390/[address] elevation or depression. Critical Care Time Critical Care Time: Yes Total Critical Care Time: 35 Critical Care Time: Total of 35 minutes of critical care time were used to evaluate, care, treatment patient. Labs including CBC, CMP, troponin, BMP, d-dimer Are Chest X-Ray EKG Were Ordered. Patient Has a Right-Sided Lung Mass. D-Dimer Is Elevated CT Was Obtained Which Shows Large Pulmonary Mass with Metastasis. Patient Did Have Hyp oxia Is a 83 Placed on Oxygen, Breathing Treatment Ordered, IV Antibiotics and IV Steroids Given Secondary to Productive Cough, Subjective Fever and Leukocytosis and Lactic Acidosis. Patient Will Be Admitted to Telemetry for Further Monitoring, Care, Consult Pulmonology and Oncology Disposition Clinical Impression: Metastatic primary lung cancer, Hypoxic, Respiratory distress, Tracheobronchitis Disposition: ADMITTED IP TO THIS HOSP Condition: Fair Referrals: Joni Wong MD [Primary Care Provider] - 1-2 days
[2019-06-02 11:14] LABS: Basophils # (A) 0.1 k/uL (0-0.2); Basophils % (A) 0 %; Eosinophils # (A) 0.5 k/uL (0-0.7); Eosinophils % (A) 2 %; HCT 40.2 % (34.0-46.0); HGB 13.2 gm/dL (11.4-16.0); Lymphocytes # (A) 1.4 k/uL (1.0-4.8); Lymphocytes % (A) 7 %; MCH 31.4 pg (25.0-35.0); MCHC 32.7 g/dL (31.0-37.0); MCV 95.8 fL (80.0-100.0); Mean Platelet Volume 5.3; Monocytes # (A) 0.7 k/uL (0-1.0); Monocytes % (A) 3 %; Neutrophils # (A) 17.9 k/uL (1.3-7.7); Neutrophils % (A) 87 %; Platelet Count 268 k/uL (150-450); RDW 12.7 % (11.5-15.5); WBC 20.7 k/uL (3.8-10.6)
[2019-06-02 11:26] LABS: ALT 24 U/L (9-52); AST 27 U/L (14-36); African American GFR (CKD) >90 (>60 ml/min/1.73 sqM); Albumin 3.9 g/dL (3.5-5.0); Alkaline Phosphatase 61 U/L (38-126); Anion Gap 9 mmol/L; Blood Urea Nitrogen 13 mg/dL (7-17); Calcium 9.5 mg/dL (8.4-10.2); Carbon Dioxide 25 mmol/L (22-30); Chloride 103 mmol/L (98-107); Glucose 77 mg/dL (74-99); Potassium 3.9 mmol/L (3.5-5.1); Sodium 137 mmol/L (137-145); Total Bilirubin 0.6 mg/dL (0.2-1.3); Total Protein 6.9 g/dL (6.3-8.2)
--- NOTE | 2019-06-02 11:50 | XR ---
EXAMINATION TYPE: XR chest 2V DATE OF EXAM: 06/02/2019 HISTORY: difficulty breathing. REFERENCE: Previous study dated 05/07/2019. FINDINGS: There is a large, right hilar mass which may have increased in size from previous. There is a right-sided pleural reaction which is worsened slightly and may represent pleural fluid. The left lung is clear. There is some shift of the mediastinal structures towards the right. There is some vol ume loss in the right lower lung. IMPRESSION: 1. ENLARGING RIGHT HILAR MASS. 2. VOLUME LOSS IN THE RIGHT LUNG. 3. PROBABLE RIGHT-SIDED EFFUSION WHICH IS WORSENED SLIGHTLY FROM PREVIOUS.
[2019-06-02 12:19] LABS: INR 0.9 (<1.2)
[2019-06-02 12:28] LABS: D-Dimer 2.86 mg/L FEU (<0.60); Partial Thromboplastin Time 20.4 sec (22.0-30.0)
--- NOTE | 2019-06-02 13:12 | CT ---
EXAMINATION TYPE: CT chest angio for PE DATE OF EXAM: 06/02/2019 COMPARISON: None. HISTORY: Shortness of breath. Recent diagnosis of lung cancer CT DLP: 218.3 mGycm Automated exposure control for dose reduction was used. CONTRAST: CT Chest for pulmonary embolism performed with with IV Contrast, patient injected with 100 mL of Isov ue 370. FINDINGS: There are emphysematous changes throughout the lungs. There is a 10.3 x 25.4 mm spiculated nodule in the posterior segment of the right upper lobe, best seen on image 40. There is a contiguous 10.7 mm lesion in the right upper lobe. There is a 7.8 x 5.9 x 7.6 cm right suprahilar mass lesion which is encasing the right main pulmonary artery and the right upper lobe pulmonary artery. There is a moderate right-sided pleural effusion. There is a 1.3 cm mass in the posterior basal segment of the left lower lobe best seen on image 107. No other left-sided masses are seen. There is a paucity of vessels in the right upper lobe. There is no evidence of pulmonary embolus. The aorta is normal in caliber without evidence of dye dissection. There is an 11 mm pericardial effu daniel posteriorly. There is a 2 cm, low attenuating lesion in the upper pole of the left kidney, likely representing a c yst. Visualized portions of the upper abdomen are otherwise unremarkable. There is moderate atheromatous calcification of the visualized arterial tree including the coronary a rteries. IMPRESSION: 1. THIS EXAMINATION IS NEGATIVE FOR PULMONARY EMBOLUS. 2. 7.8 X 5.9 X 7.6 CM RIGHT SUPRAHILAR MASS LESION ENCASING THE RIGHT MAIN PULMONARY ARTERY AND UPPER LOBE PULMONARY ARTERY CAUSING SOME DECREASE IN ARTERIAL FLOW TO THE UPPER LOBE ON THE RIGHT. 2. AT LEAST 3 SOFT TISSUE MASSES WITHIN BOTH LUNGS. 2 IN THE RIGHT UPPER LOBE AND ONE IN THE LEFT LOW ER LOBE. THESE MAY REPRESENT METASTASES. 3. RIGHT-SIDED PLEURAL EFFUSION. 4. PROBABLE RIGHT RENAL CYST. THIS SHOULD BE CONFIRMED WITH ULTRASOUND. 5. SMALL PERICARDIAL EFFUSION.
[2019-06-02] MEDS ORDERED: methylPREDNISolone SOD SUCCI 125 MG/2 ML VIAL IV STA (13:31)
[2019-06-02] MEDS ORDERED: AZITHROMYCIN 500 MG in SODIUM CHLORIDE 0.9% 250 ML IVPB STA (13:31)
[2019-06-02] MEDS ORDERED: NALOXONE 0.4 MG/ML 1 ML VIAL IV PRN (13:32)
[2019-06-02] MEDS ORDERED: ONDANSETRON 4 MG/2 ML VIAL IVP PRN (13:32)
[2019-06-02] MEDS ORDERED: IPRATROPIUM-ALBUTEROL 3 ML NEB INHALATION PRN (14:48)
--- NOTE | 2019-06-02 14:56 | P.HPIM ---
History of Present Illness H&P Date: 06/02/19 Chief Complaint: Shortness of breath 73-year-old female with PMH of hypothyroidism, hypertension, COPD and recently diagnosed lung adenocarcinoma presents the ED for worsening shortness of breath. Patient states that she has been diagnosed with stage IV lung cancer and is c urrently awaiting chemotherapy. She has a follow-up appointment with her oncologist Dr. Conklin this . Patient reports since her biopsy, she is progressively feeling short of breath. This morning she couldn't catch her breath which prompted her to come to the ED. Patient also reports chest pain that is described like a band around the chest, pressure-like, 4 out of 10 in severity without any radiation. There were no alleviating or aggravating factors. Patient also reports a dry cough that is worsened when she takes a deep breath. She denies any headache, nausea or vomiting, fever or chills, changes in urination or bowel habits. Patient does report chronic diarrhea for which she sees Dr. Fernández. Patient also reports a poor appetite and a decrease in weight over the past years due to her colitis. In the ED, her O2 saturation was low as 83%. Vital signs were otherwise stable except for tachycardia with heart rate 109. CBC showed leukocytosis of 20.7. Coagulation panel was negative. D- dimer was elevated at 2.86. Lactic acid was 2.3. CMP was unremarkable otherwise. Troponin was less than 0.012 and BNP was within normal limits. CTA chest ruled out PE but showed the lung adenocarcinoma with metastatic disease. Patient is admitted for dyspnea, acute hypoxic respiratory failure, pulmonology and oncology to be consulted. Review of Systems Pertinent positives and negatives as discussed in HPI, a complete review of sy stems was performed and all other systems are negative. Past Medical History Past Medical History: Asthma, COPD, GERD/Reflux, Hypertension, Thyroid Disorder Additional Past Medical History / Comment(s): MIGRAINES, ARTHRITIS SPINE, CHRONIC DIARRHEA SINCE SEPTEMBER., Lung adenocarcinoma History of Any Multi-Drug Resistant Organisms: None Reported Past Surgical History: Appendectomy, Hysterectomy, Tonsillectomy Additional Past Surgical History / Comment(s): PILONIDAL CYST Past Anesthesia/Blood Transfusion Reactions: No Reported Reaction, Motion Sickness Past Psychological History: Anxiety, Depression Past Alcohol Use History: None Reported - Past Family History Mother Family Medical History: No Reported History Medications and Allergies Home Medications Medication Instructions Recorded Confirmed Type Budesonide-Formot 160-4.5 Mcg 2 puff INHALATION RT-BID 01/04/18 06/02/19 History [Symbicort 160-4.5 Mcg Inhaler] Calcium Carbonate [Calcium] 600 mg PO DAILY 01/04/18 06/02/19 History Levothyroxine Sodium [Synthroid] 50 mcg PO DAILY 01/04/18 06/02/19 History Metoprolol Succinate (ER) [Toprol 50 mg PO DAILY 01/04/18 06/02/19 History Xl] Montelukast [Singulair] 10 mg PO DAILY 01/04/18 06/02/19 History Multivitamins, Thera [Multivitamin 1 tab PO DAILY 01/04/18 06/02/19 History (formulary)] Omeprazole 20 mg PO DAILY 01/04/18 06/02/19 History Diphenox-Atrop 2.5-0.025 mg 2 tab PO TID 05/02/19 06/02/19 History [Lomotil] Budesonide [Budesonide EC] 9 mg PO W/BRKFST 06/02/19 06/02/19 History DULoxetine HCL [Cymbalta] 60 mg PO DAILY 06/02/19 06/02/19 History Escitalopram [Lexapro] 20 mg PO DAILY 06/02/19 06/02/19 History Folic Acid 1 mg PO DAILY 06/02/19 06/02/19 History Prochlorperazine Maleate 10 mg PO Q6H PRN 06/02/19 06/02/19 History Allergies Allergy/AdvReac Type Severity Reaction Status Date / Time No Known Allergies Allergy Verified 06/02/19 12:07 Physical Exam Vitals: Vital Signs Temp Pulse Resp BP Pulse Ox 06/02/19 14:24 98.2 F 75 18 139/69 95 06/02/19 13:00 82 18 135/75 91 L 06/02/19 12:30 75 142/81 95 06/02/19 12:00 78 147/75 95 06/02/19 10:58 104 H 06/02/19 10:52 108 H 06/02/19 10:19 97.8 F 109 H 26 H 147/72 83 L Intake and Output 06/01/19 06/02/19 06/02/19 23:59 06:59 14:59 Other: Weight 49.442 kg General: [non toxic], [no distress], [appears at stated age] Derm: [warm], [dry] Head: [atraumatic], [normocephalic], [symmetric] Eyes: [EOMI], [no lid lag], [anicteric sclera] Mouth: [no lip lesion], [mucus membranes moist] Cardiovascular: [S1S2 reg], [no murmur], [positive DP pulse bilateral], Lungs: [Decreased breath sounds bilateral], [no rhonchi, no rales] , [no accessory muscle use] Abdominal: [soft], [ nontender to palpation], [no guarding], [no appreciable organomegaly] Ext: [no gross muscle atrophy], [no edema], [no contractures] Neuro: [ CN II-XI grossly intact], [no focal neuro deficits] Psych: [Alert], [oriented], [appropriate affect] Results CBC & Chem 7: 06/02/19 10:52 06/02/19 10:52 Labs: Abnormal Lab Results - Last 24 Hours (Table) 06/02/19 06/02/19 06/02/19 Range/Units 10:52 10:52 12:00 WBC 20.7 H (3.8-10.6) k/uL Neutrophils # 17.9 H (1.3-7.7) k/uL APTT 20.4 L (22.0-30.0) sec D-Dimer 2.86 H (<0.60) mg/L FEU Plasma Lactic Acid Mukesh 2.3 H* (0.7-2.0) mmol/L Assessment and Plan Assessment: Acute hypoxic respiratory failure due to lung adenocarcinoma COPD exacerbation Leukocytosis Lactic acidosis Elevated d-dimer History of colitis Hypothyroidism Hypertension O2 saturation 83% on room air. Likely due to recent diagnosis of lung adenocarcinoma with metastasis. Plans: O2 per NC to maintain O2 saturation greater than 92%. Optimize COPD medications. Follow pulmonology and oncology consultation. Plans: Continue Symbicort. DuoNeb scheduled and as needed for shortness of elmer ath and wheezing. Continue Solu-Medrol. Follow pulmonology recommendations. Likely due to steroids that she was taking at home for colitis. Plans: No signs of infection. Continue to monitor. Lactic acid 2.3. Likely due to dehydration. Plans: Gentle hydration with normal saline 75 mL per hour. Repeat lactic acid in 6 hours. D-dimer 2.86. Plans: CTA chest excluded PE. Patient sees Dr. Fernández. Plans: Continue Lomotil and prednisone instead of budesonide. Plans: Resume Synthroid. BP well-controlled. Plans: Resume metoprolol. DVT prophylaxis: [SCD boots] Discussed with: [Patient] Anticipated discharge: [Home] Anticipated discharge place: [1-2 days] A total of [45] minutes was spent on the care of this complex patient more than 50% of the time was spent in counseling and care coordination. Patient names her Ata decision-maker in the case that she can't make decisions for herself. Patient reiterates wanting to remain no code but is open to intubation. This admission is anticipated greater than 48 hours for acute hypoxic respiratory failure.
[2019-06-02] MEDS: SODIUM CHLORIDE 0.9% 1,000 ML IV SCH (15:59)
[2019-06-02] MEDS: IPRATROPIUM-ALBUTEROL 3 ML NEB INHALATION SCH ×2 (17:02→20:42)
--- NOTE | 2019-06-02 17:22 | CONS ---
CONSULTATION Pulmonary/Critical care consultation. DATE OF CONSULTATION: June 02, 2019 HISTORY OF PRESENT ILLNESS: This is a 73-year-old female well known to me. I saw her recently in the office for an abnormal chest x-ray and CT scan. We did electromagnetic navigational bronchoscopy on her and her biopsies came back positive for non-small cell lung cancer, adenocarcinoma. In addition, she has a lesion in the left frontal lobe. As well as significant paratracheal, precarinal, subcarinal adenopathy and a lesion in the left adrenal gland as well. Clearly, she has advanced stage IV non-small cell lung cancer, adenocarcinoma. I sent her to see Dr. Declan Samuel, who apparently is planning to radiate the left frontal lobe lesion and also to Dr. Conklin who was planning on immune therapy on this patient. She has not received any treatment as yet. Anyway, she comes into the emergency room today complaining of severe shortness of breath. She also is coughing a bit. Not producing any phlegm. She really could not catch her breath at all. For that reason, she was seen in the emergency room. Her other complaint was that of chest discomfort particularly on the right side of the chest. Finally, her appetite has been poor and she is losing weight. In addition, her colitis is acting up. She has had profuse watery diarrhea. She is currently in room [facility] on the [facility]. I am seeing her currently. Her home medications are reviewed. She is on Symbicort, calcium carbonate, Synthroid, metoprolol Singulair, multivitamins, omeprazole, Lomotil, budesonide, EC, Cymbalta, Lexapro, folic acid, and Compazine. ALLERGIES: No known allergies. PAST MEDICAL HISTORY: Includes COPD/asthma, GERD, colitis, hypertension, hypothyroidism, migraine cephalgia, DJD, and chronic diarrhea primarily from her colitis. In addition, she has been recently diagnosed with metastatic adenocarcinoma with lesions in the adrenal gland and left frontal lobe. SURGICAL HISTORY: Includes appendectomy, hysterectomy, tonsillectomy, pilonidal cyst surgery, and recent electromagnetic navigational bronchoscopy. SOCIAL HISTORY: Positive for previous tobacco use. She denies any alcohol use. FAMILY HISTORY: Noncontributory. Both mother and father were apparently healthy. REVIEW OF SYSTEMS: CONSTITUTIONAL: Weakness, weight loss. NEUROLOGIC negative. HEENT negative. CARDIOVASCULAR: Chest pain. PULMONARY: Shortness of breath, cough, minimal phlegm production. Chest tightness. GI diarrhea. negative. RHEUMATOLOGIC negative. IMMUNOLOGIC negative. ENDOCRINOLOGIC negative. DERMATOLOGIC negative. PHYSICAL EXAMINATION: VITAL SIGNS: Current vital signs are reviewed. Temperature is 98. Heart rate 73. Respiratory rate 17, blood pressure 139/69, 2 L saturation 95%. GENERAL: She appears in no acute distress. She feels certainly better with the oxygen therapy. No conversational dyspnea, use of accessory muscles or audible wheezing. HEENT examination is grossly unremarkable. Mucous membranes are moist. Nasal O2 noted. NECK: Supple. Full range of motion. No adenopathy. CARDIOVASCULAR examination reveals regular rhythm and rate. Heart rate 73. S1, S2 normal. LUNGS: Diminished breath sounds on the right. A few scattered rhonchi noted, particularly right-sided. No crackles. ABDOMEN: Soft. Bowel sounds are heard. EXTREMITIES are intact. No cyanosis, clubbing, or edema. SKIN: Without rash. NEUROLOGIC: Examination is brief but nonfocal. LABS: Reviewed. White count 20.7, hemoglobin 13.2, hematocrit 40.2, platelet count 268,000. PT, INR were normal. PTT 20.4. D-dimer 2.86. Sodium, potassium, chloride and CO2 all normal. Anion gap 9. BUN and creatinine were 13 and 0.66. Lactic acid initially was 2.3. Repeat 0.7. X-RAY: Shows enlarging right hilar mass with volume loss in the right lung. There may be a small right-sided pleural effusion versus atelectasis. CT angiogram shows no evidence of pulmonary embolism. There is a 7.8 x 5.9 x 7.6, right suprahilar mass lesion encasing the right main pulmonary artery and right upper lobe pulmonary artery causing some decrease in blood flow. There is at least 3 soft tissue masses within both lungs, 2 in the right upper lobe and one in the left lower lobe, which likely represents metastasis. There is a small right-sided pleural effusion. There is also a small pericardial effusion. Results of the PET scan and recent brain MRI are reviewed. Noted above. Current medications are reviewed. ASSESSMENT: 1. Stage IV non-small cell lung cancer, adenocarcinoma, recently diagnosed by electromagnetic navigational bronchoscopy with diffuse thoracic and mediastinal adenopathy and metastasis to the left frontal lobe and adrenal gland. Therapy has not yet been started. The patient has seen both Dr. Declan Samuel and Dr. Zachary Conklin. 2. History of chronic obstructive pulmonary disease, relatively stable at this time. 3. Colitis, active with profuse diarrhea. 4. Gastroesophageal reflux disease. 5. Hypertension. 6. Hypothyroidism. 7. Migraine cephalgia. 8. Degenerative joint disease. PLAN: The patient's overall prognosis at this point is certainly guarded. Would recommend Oncology and Radiation therapy consults now that she is in the hospital. She is on appropriate medications including Symbicort, updrafts and steroids. We will continue to follow. No additional recommendations are made at this time. The patient is not in any respiratory distress at this time. MMODL / IJN: [id number] /
[2019-06-02] MEDS: DIPHENOX-ATROP 2.5-0.025 MG 1 EACH TAB PO SCH ×2 (18:48→19:25)
[2019-06-02] MEDS: SYMBICORT 160-4.5 MCG INHALER INHALATION SCH (20:42)
[2019-06-03] MEDS: IPRATROPIUM-ALBUTEROL 3 ML NEB INHALATION SCH ×6 (00:32→23:09)
[2019-06-03] MEDS: DIPHENOX-ATROP 2.5-0.025 MG 1 EACH TAB PO SCH ×4 (00:42→20:35)
[2019-06-03] MEDS: LEVOTHYROXINE 50 MCG TAB PO SCH (05:30)
[2019-06-03] MEDS: SODIUM CHLORIDE 0.9% 1,000 ML IV SCH ×2 (05:30→19:23)
[2019-06-03] MEDS: DULoxetine HCL 60 MG CAPSULE.DR PO SCH (08:40)
[2019-06-03] MEDS: PANTOPRAZOLE 40 MG TABLET PO SCH (08:40)
[2019-06-03] MEDS: predniSONE 20 MG TAB PO SCH (08:40)
[2019-06-03] MEDS: METOPROLOL SUCCINATE (ER) 50 MG TAB.ER.24H PO SCH (08:41)
[2019-06-03] MEDS: ESCITALOPRAM 20 MG TAB PO SCH (08:41)
[2019-06-03] MEDS: SYMBICORT 160-4.5 MCG INHALER INHALATION SCH ×2 (09:35→23:09)
[2019-06-03] MEDS: ACETAMINOPHEN TAB 325 MG TAB PO PRN (10:31)
--- NOTE | 2019-06-03 10:40 | P.PN ---
Subjective Progress Note Date: 06/03/19 Principal diagnosis: Metastatic lung cancer Patient was seen and examined. No acute events overnight. Patient reports no changes in her condition. Blood shortness of breath only when she stands up and with exertion. No shortness of breath while sitting in bed. She denies any chest pain or palpitations. No nausea or vomiting. No fever or chills. Objective - Vital Signs Vital signs: Vital Signs Temp 98.5 F 06/03/19 05:00 Pulse 87 06/03/19 09:46 Resp 16 06/03/19 08:25 BP 115/67 06/03/19 05:00 Pulse Ox 95 06/03/19 09:36 Intake & Output 06/02/19 06/03/19 06/03/19 18:59 06:59 18:59 Intake Total 825 Balance 825 Weight 49.442 kg Intake: Intake, IV Titration 825 Amount Sodium Chloride 0.9% 1, 825 000 ml @ 75 mls/hr IV . [id number] [facility] Rx#:[id number] Other: Voiding Method Bedside Commode Bedside Commode # Voids 1 - Exam General: [non toxic], [no distress], [appears at stated age] Derm: [warm], [dry] Head: [atraumatic], [normocephalic], [symmetric] Eyes: [EOMI], [no lid lag], [anicteric sclera] Mouth: [no lip lesion], [mucus membranes moist] Cardiovascular: [S1S2 reg], [no murmur], [positive DP pulse bilateral], Lungs: [Decreased breath sounds bilateral], [no rhonchi, no rales] , [no accessory muscle use] Abdominal: [soft], [ nontender to palpation], [no guarding], [no appreciable organomegaly] Ext: [no gross muscle atrophy], [no edema], [no contractures] Neuro: [no focal neuro deficits] Psych: [Alert], [oriented], [appropriate affect] - Labs CBC & Chem 7: 06/02/19 10:52 06/02/19 10:52 Labs: Abnormal Lab Results - Last 24 Hours (Table) 06/02/19 06/02/19 06/02/19 Range/Units 10:52 10:52 12:00 WBC 20.7 H (3.8-10.6) k/uL Neutrophils # 17.9 H (1.3-7.7) k/uL APTT 20.4 L (22.0-30.0) sec D-Dimer 2.86 H (<0.60) mg/L FEU Plasma Lactic Acid Mukesh 2.3 H* (0.7-2.0) mmol/L Assessment and Plan Assessment: Acute hypoxic respiratory failure due to lung adenocarcinoma COPD exacerbation Leukocytosis Lactic acidosis Elevated d-dimer History of colitis Hypothyroidism Hypertension O2 saturation 83% on room air. Likely due to recent diagnosis of lung adenocarcinoma with metastasis. Plans: O2 per NC to maintain O2 saturation greater than 92%. Optimize COPD medications. Follow pulmonology and oncology consultation. Consult radiation oncology. Plans: Continue Symbicort. DuoNeb scheduled and as needed for shortness of breath and wheezing. Continue prednisone. Follow pulmonology recommendations. Likely due to steroids that she was taking at home for colitis. Plans: No signs of infection. Continue to monitor. Lactic acid 2.3. Likely due to dehydration. Plans: Gentle hydration with normal saline 75 mL per hour. Repeat lactic acid negative. D-dimer 2.86. Plans: CTA chest excluded PE. Patient sees Dr. Fernández. Plans: Continue Lomotil and prednisone instead of budesonide. Plans: Resume Synthroid. BP well-controlled. Plans: Resume metoprolol. Patient names her Ata decision-maker in the case that she can't make decisions for herself. After discussing with nursing, patient would like to be a full code, open to chest compressions and intubation, but does not want to be intubated for a prolonged period of time. We are waiting on oncology recommendations. Radiation oncology has been consulted. Patient is pending clinical improvement. Prognosis is guarded.
[2019-06-03 11:35] LABS: African American GFR (CKD) >90 (>60 ml/min/1.73 sqM); Anion Gap 9 mmol/L; Blood Urea Nitrogen 10 mg/dL (7-17); Calcium 9.4 mg/dL (8.4-10.2); Carbon Dioxide 26 mmol/L (22-30); Chloride 105 mmol/L (98-107); Glucose 91 mg/dL (74-99); Potassium 4.1 mmol/L (3.5-5.1); Sodium 140 mmol/L (137-145)
[2019-06-03 12:13] LABS: Basophils % (A) 0 %; Eosinophils % (A) 0 %; HCT 40.1 % (34.0-46.0); HGB 12.7 gm/dL (11.4-16.0); Lymphocytes # (A) 0.7 k/uL (1.0-4.8); Lymphocytes % (A) 3 %; MCH 30.8 pg (25.0-35.0); MCHC 31.7 g/dL (31.0-37.0); MCV 97.2 fL (80.0-100.0); Mean Platelet Volume 6.6; Monocytes # (A) 0.5 k/uL (0-1.0); Monocytes % (A) 2 %; Neutrophils # (A) 20.8 k/uL (1.3-7.7); Neutrophils % (A) 94 %; Platelet Count 219 k/uL (150-450); RBC 4.13 m/uL (3.80-5.40); RDW 12.7 % (11.5-15.5); WBC 22.1 k/uL (3.8-10.6)
--- NOTE | 2019-06-03 15:38 | P.PN ---
Subjective Progress Note Date: 06/03/19 Principal diagnosis: Shortness of breath, non-small cell lung cancer/adenocarcinoma The patient is seen today 06/03/2018 in follow-up on the oncology unit. She is currently awake and alert in no acute distress. Still having some dyspnea on minimal exertion. Currently maintaining O2 saturation in the 90s on 2 L/m per nasal cannula. Afebrile. Blood culture reveals no growth. White count 22. Hemoglobin 12.7. Creatinine 0.58. CT angiogram ruled out pulmonary embolism. There is a 7.8 x 5.9 x 7.6 cm right suprahilar mass encasing the right main pulmonary artery and upper lobe pulmonary artery causing some decrease in arterial flow to the upper lobe on the right. There are at least 3 soft tissue masses within both lungs. 2 in the right upper lobe and one in the left lower lobe. Most likely representing metastasis. There is a right-sided pleural effusion. She is continued on bronchodilators, Singulair, oral prednisone. Objective - Vital Signs Vital signs: Vital Signs Temp 97.6 F 06/03/19 11:43 Pulse 89 06/03/19 13:22 Resp 17 06/03/19 11:43 BP 164/77 06/03/19 11:43 Pulse Ox 93 L 06/03/19 11:43 Intake & Output 06/02/19 06/03/19 06/03/19 18:59 06:59 18:59 Intake Total 825 1307 Balance 825 1307 Weight 49.442 kg Intake: Intake, IV Titration 825 657 Amount Sodium Chloride 0.9% 1, 825 657 000 ml @ 75 mls/hr IV . [id number] [facility] Rx#:[id number] Oral 650 Other: Voiding Method Bedside Commode Bedside Commode # Voids 1 3 - Exam GENERAL EXAM: Alert, doesn't 73-year-old female patient, on 2 L nasal cannula, comfortable in no apparent distress. HEAD: Normocephalic. EYES: Normal reaction of pupils, equal size. NOSE: Clear with pink turbinates. THROAT: No erythema or exudates. NECK: No masses, no JVD. CHEST: No chest wall deformity. LUNGS: Equal air entry with rhonchi more so on the right lung. CVS: S1 and S2 normal with no audible murmur, regular rhythm. ABDOMEN: No hepatosplenomegaly, normal bowel sounds, no guarding or rigidity. SPINE: No scoliosis or deformity SKIN: No rashes CENTRAL NERVOUS SYSTEM: No focal deficits, tone is normal in all 4 extremities. EXTREMITIES: There is no peripheral edema. No clubbing, no cyanosis. Peripheral pulses are intact. - Labs CBC & Chem 7: 06/03/19 07:21 06/03/19 07:21 Labs: Abnormal Lab Results - Last 24 Hours (Table) 06/03/19 Range/Units 07:21 WBC 22.1 H (3.8-10.6) k/uL Neutrophils # 20.8 H (1.3-7.7) k/uL Lymphocytes # 0.7 L (1.0-4.8) k/uL Microbiology - Last 24 Hours (Table) 06/02/19 10:52 Blood Culture - Preliminary Blood No Growth after 24 hours Assessment and Plan Assessment: Impression: #1 Acute hypoxic respiratory failure secondary to increasing right suprahilar mass which is measuring 7.8 x 5.9 x 7.6 and is encasing the right main pulmonary artery and the right upper lobe pulmonary artery. There is moderate right-sided pleural effusion. There is a 1.3 cm mass in the posterior basal segment of the left lower lobe. There is a 10.3 x 25.4 mm spiculated nodule in the posterior segment of the right upper lobe. Contiguous 10.7 mm lesion in the right upper lobe. #2 Known non-small lung cancer/adenocarcinoma, has not started treatment yet. Probable immune therapy. PD-L1 analysis 80% positive on the tumor proportion score #3 Suspected metastatic brain lesion that has a subtle rounded area with a central bone intensity which may reside in with the gyrus or possible sulcus of the left frontal lobe. #4 Acute exacerbation of chronic obstructive pulmonary disease. #5 History of colitis with profuse diarrhea. #6 Gastric esophageal reflux disease. #7 Hypertension #8 Hypothyroidism. #9 Migraine cephalgia. #10 Degenerative joint disease. Plan: The patient was seen and evaluated by Dr. Calles. CAT scan of chest x-rays reviewed. She would benefit from a bronchoscopy and possible stent placement to keep the right lung airways open. She is somewhat bronchospastic and wheezy. We will continue her current treatment until she is improved prior to performing the procedure. We will continue to follow and make further recommendations based on her clinical status. I, the cosigning physician, performed a history & physical examination of the patient. Lungs sounds with scattered rhonchi, more so on the right lung, end expiratory wheeze. Maintaining good O2 saturations in the 90s on 2 L/m per nasal cannula. I discussed the assessment and plan of care with my nurse practi zion, Araceli Sneed. I attest to the above note as dictated by her.
[2019-06-03 16:46] VITALS: BMI 18.7
[2019-06-03] MEDS: HYDROcodone/APAP 5-325MG 1 EACH TAB PO PRN (17:40)
--- NOTE | 2019-06-03 19:20 | P.CONS ---
History of Present Illness - Reason for Consult Consult date: 06/03/19 met NSCLC Requesting physician: Marco A Haley - Chief Complaint CHE - History of Present Illness Ms. Singh is a very pleasant pt of Dr. Conklin who presented with cough and small amount hemoptysis x 4 weeks before diagnosis, she stated having progressive exertional dyspnea X 6 month. CXR followed by CT revealed a large rt hilar mass with mediastinal lymphadenopathy. PET revealed FDG-Avid neoplastic process in lung mass and mediastinal lymphadenopathy, as well as bilateral adrenal metastasis, R>L. Bronchoscopy with Dr. Smiley 05/07/19 revealed NSCLC adenocarcinoma. Pt has a 30 year pack Hx of smoking, quitting 30 years ago, has chronic colitis, treats with Dr. Ocasio. No family history of malignancy. She was seen by Dr. Conklin on 05/16 at which time pathology, imaging, stage IV disease, natural history of disease and options of care were all discussed. 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 Oral treatment ordered with plans to begin later this week. Patient unfortunately has had progressive difficulty in breathing. This is more notable on any sort of exertion or with positional changes. Patient is okay in a semi-Fowlers position, not able to lay flat, standing up and does cause problems as well. CTA of the chest was negative for PE. Right pulmonary artery is encased, small pericardial infusion. Rad Onc has seen pt. Patient has been started on steroids. Patient has no other complaints on a 14 point review of systems. She denies any pain Review of Systems 14 point review of systems is negative except as stated in HPI Past Medical History Past Medical History: Asthma, Cancer, COPD, GERD/Reflux, Hypertension, Thyroid Disorder Additional Past Medical History / Comment(s): MIGRAINES, ARTHRITIS SPINE, CHRONIC DIARRHEA SINCE SEPTEMBER., Lung adenocarcinoma History of Any Multi-Drug Resistant Organisms: None Reported Past Surgical History: Appendectomy, Hysterectomy, Tonsillectomy Additional Past Surgical History / Comment(s): PILONIDAL CYST Past Anesthesia/Blood Transfusion Reactions: No Reported Reaction, Motion Sickness Past Psychological History: Anxiety, Depression Past Alcohol Use History: None Reported Past Drug Use History: None Reported - Past Family History Mother Family Medical History: No Reported History Medications and Allergies Home Medications Medication Instructions Recorded Confirmed Type Budesonide-Formot 160-4.5 Mcg 2 puff INHALATION RT-BID 01/04/18 06/02/19 History [Symbicort 160-4.5 Mcg Inhaler] Calcium Carbonate [Calcium] 600 mg PO DAILY 01/04/18 06/02/19 History Levothyroxine Sodium [Synthroid] 50 mcg PO DAILY 01/04/18 06/02/19 History Metoprolol Succinate (ER) [Toprol 50 mg PO DAILY 01/04/18 06/02/19 History Xl] Montelukast [Singulair] 10 mg PO DAILY 01/04/18 06/02/19 History Multivitamins, Thera [Multivitamin 1 tab PO DAILY 01/04/18 06/02/19 History (formulary)] Omeprazole 20 mg PO DAILY 01/04/18 06/02/19 History Diphenox-Atrop 2.5-0.025 mg 2 tab PO TID 05/02/19 06/02/19 History [Lomotil] Budesonide [Budesonide EC] 9 mg PO W/BRKFST 06/02/19 06/02/19 History DULoxetine HCL [Cymbalta] 60 mg PO DAILY 06/02/19 06/02/19 History Escitalopram [Lexapro] 20 mg PO DAILY 06/02/19 06/02/19 History Folic Acid 1 mg PO DAILY 06/02/19 06/02/19 History Prochlorperazine Maleate 10 mg PO Q6H PRN 06/02/19 06/02/19 History Allergies Allergy/AdvReac Type Severity Reaction Status Date / Time No Known Allergies Allergy Verified 06/02/19 12:07 Physical Exam Vitals: Vital Signs Temp Pulse Pulse Resp BP BP Pulse Ox 06/03/19 05:00 98.5 F 92 16 115/67 93 L 06/03/19 04:04 88 06/03/19 03:49 84 06/03/19 00:46 88 06/03/19 00:35 88 94 L 06/02/19 22:12 97.6 F 81 20 130/70 91 L 06/02/19 20:56 92 06/02/19 20:43 92 06/02/19 17:12 90 06/02/19 17:04 90 06/02/19 16:00 22 06/02/19 15:00 98 F 73 17 152/91 93 L 06/02/19 14:24 98.2 F 75 18 139/69 95 06/02/19 13:00 82 18 135/75 91 L 06/02/19 12:30 75 142/81 95 06/02/19 12:00 78 147/75 95 06/02/19 10:58 104 H 06/02/19 10:52 108 H 06/02/19 10:19 97.8 F 109 H 26 H 147/72 83 L Intake and Output 06/02/19 06/03/19 06/03/19 22:59 06:59 14:59 Intake Total 300 525 Balance 300 525 Intake: Intake, IV Titration 300 525 Amount Sodium Chloride 0.9% 1, 300 525 000 ml @ 75 mls/hr IV . [id number] [facility] Rx#:[id number] Other: Voiding Method Bedside Commode # Voids 1 1 - Constitutional General appearance: average body habitus, cooperative, mild distress - EENT Eyes: anicteric sclerae, EOMI ENT: hearing grossly normal, normal oropharynx - Neck Neck: no lymphadenopathy - Respiratory Respiratory: bilateral: diminished, negative: rales, rhonchi, wheezing - Cardiovascular Rhythm: regular Heart sounds: normal: S1, S2 Abnormal Heart Sounds: systolic murmur, no diastolic murmur, no rub, no S3 Gallop, no S4 Gallop, no click, no other leg Peripheral Edema: bilateral: None - Gastrointestinal General gastrointestinal: no absent bowel sounds, no decreased bowel sounds, no distended, no hepatomegaly, no hyperactive bowel sounds, normal bowel sounds, no organomegaly, no rigid, no scaphoid, soft, no splenomegaly, no tenderness, no umbilical hernia, no ventral hernia - Neurologic Neurologic: CNII-XII intact - Musculoskeletal Musculoskeletal: strength equal bilaterally - Psychiatric Psychiatric: A&O x's 3, appropriate affect, intact judgment & insight Results CBC & Chem 7: 06/03/19 07:21 06/03/19 07:21 Labs: Abnormal Lab Results - Last 24 Hours (Table) 06/02/19 06/02/19 06/02/19 Range/Units 10:52 10:52 12:00 WBC 20.7 H (3.8-10.6) k/uL Neutrophils # 17.9 H (1.3-7.7) k/uL APTT 20.4 L (22.0-30.0) sec D-Dimer 2.86 H (<0.60) mg/L FEU Plasma Lactic Acid Mukesh 2.3 H* (0.7-2.0) mmol/L CT scan - chest: report reviewed Assessment and Plan (1) Hypoxic Narrative/Plan: Patient is being treated by pulmonary with steroids and multiple medications. Suspect that some of patient's hypoxia is related to her encased pulmonary artery. Case was discussed with Radiation Oncologist. There is consideration for radiating the mass encasing the pulmonary artery due to patient's significant symptomology, going to see how medical mgmt does. We'll continue to follow with patient. She may require home O2 until treatment has had a chance to shrink her cancer and relieve some of her symptoms. Current Visit: Yes Status: Acute Priority: High Code(s): R09.02 - H YPOXEMIA SNOMED Code(s): 558658174 (2) Metastatic primary lung cancer Narrative/Plan: Guardant 360 testing pt has [id number] positive lung cancer. Crizotinib FDA approved for treatment. Drug ordered, to be delivered (pt OWN med). Will start GEM. Chemo teach on in office Current Visit: Yes Status: Acute Priority: High Code(s): C34.90 - MALIGNANT NEOPLASM OF UNSP PART OF UNSP BRONCHUS OR LUNG SNOMED Code(s): 13064814 (3) Brain metastases Narrative/Plan: Plan is for SRT 1 dose. This will be done outpatient. Current Visit: Yes Status: Acute Priority: High Code(s): C79.31 - SECONDARY MALIGNANT NEOPLASM OF BRAIN SNOMED Code(s): 23807553 Plan: attests: I preformed history and physical exam, developed impression and plan of care. Discussed with dictator. Agree with dictation. Documented as a scribe
[2019-06-03] MEDS: MONTELUKAST 10 MG TAB PO SCH (20:35)
[2019-06-04] MEDS: IPRATROPIUM-ALBUTEROL 3 ML NEB INHALATION SCH ×7 (01:52→23:16)
[2019-06-04] MEDS: HYDROcodone/APAP 5-325MG 1 EACH TAB PO PRN (04:10)
[2019-06-04] MEDS: SODIUM CHLORIDE 0.9% 1,000 ML IV SCH ×2 (06:16→20:18)
--- NOTE | 2019-06-04 08:07 | P.CONS ---
History of Present Illness - Reason for Consult Consult date: 06/03/19 dyspnea Requesting physician: Jose Sousa - Chief Complaint dyspnea - lung cancer - History of Present Illness The patient is a 73-year-old female with a history of a recently diagnosed metastatic adenocarcinoma of the right lung presenting with a large right hilar mass, with bilateral adrenal metastasis and a small INTERVENTIONAL CARDIOLOGIST metastasis. 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 She was planning on starting targeted therapy for her met mutation, when the patient became acutely short of breath this weekend. The patient reports that since her diagnosis, she has had difficulty with dyspnea on exertion. This was previously not a problem for her, as the patient reports no previous COPD exacerbations. She has quit smoking for approximately 30 years. The patient did notice this past weekend, that she developed an acute significant increase in her dyspnea with any exertion. The patient was seen one week ago in our clinic, and she had no difficulty ambulating at that time. The patient reports that now she is unable to ambulate even the short distance to the restroom without becoming significantly dyspneic. She reports no difficulty with cough, fevers, chills or night sweats. She reports no significant pain in the chest. She has been started on steroids and breathing treatments, but notes no significant improvement. The patient underwent a CT angiogram on June 02, 2019. This redemonstrated the known right suprahilar mass, which encases the right pulmonary artery. There is no evidence of pulmonary embolism. Review of Systems Constitutional: Denies chills, Denies fever Eyes: denies blurred vision Ears, nose, mouth and throat: Denies dysphagia Respiratory: Reports dyspnea, Denies cough, Denies hemoptysis, Denies pain on inspiration Gastrointestinal: Denies abdominal pain Genitourinary: Denies flank pain Musculoskeletal: Denies frequent falls Integumentary: Denies color changes Neurological: Denies confusion Psychiatric: Denies confusion Past Medical History Past Medical History: Asthma, Cancer, COPD, GERD/Reflux, Hypertension, Thyroid Disorder Additional Past Medical History / Comment(s): MIGRAINES, ARTHRITIS SPINE, CHRONIC DIARRHEA SINCE SEPTEMBER., Lung adenocarcinoma History of Any Multi-Drug Resistant Organisms: None Reported Past Surgical History: Appendectomy, Hysterectomy, Tonsillectomy Additional Past Surgical History / Comment(s): PILONIDAL CYST Past Anesthesia/Blood Transfusion Reactions: No Reported Reaction, Motion Sickness Past Psychological History: Anxiety, Depression Past Alcohol Use History: None Reported Past Drug Use History: None Reported - Past Family History Mother Family Medical History: No Reported History Medications and Allergies Home Medications Medication Instructions Recorded Confirmed Type Budesonide-Formot 160-4.5 Mcg 2 puff INHALATION RT-BID 01/04/18 06/02/19 History [Symbicort 160-4.5 Mcg Inhaler] Calcium Carbonate [Calcium] 600 mg PO DAILY 01/04/18 06/02/19 History Levothyroxine Sodium [Synthroid] 50 mcg PO DAILY 01/04/18 06/02/19 History Metoprolol Succinate (ER) [Toprol 50 mg PO DAILY 01/04/18 06/02/19 History Xl] Montelukast [Singulair] 10 mg PO DAILY 01/04/18 06/02/19 History Multivitamins, Thera [Multivitamin 1 tab PO DAILY 01/04/18 06/02/19 History (formulary)] Omeprazole 20 mg PO DAILY 01/04/18 06/02/19 History Diphenox-Atrop 2.5-0.025 mg 2 tab PO TID 05/02/19 06/02/19 History [Lomotil] Budesonide [Budesonide EC] 9 mg PO W/BRKFST 06/02/19 06/02/19 History DULoxetine HCL [Cymbalta] 60 mg PO DAILY 06/02/19 06/02/19 History Escitalopram [Lexapro] 20 mg PO DAILY 06/02/19 06/02/19 History Folic Acid 1 mg PO DAILY 06/02/19 06/02/19 History Prochlorperazine Maleate 10 mg PO Q6H PRN 06/02/19 06/02/19 History Allergies Allergy/AdvReac Type Severity Reaction Status Date / Time No Known Allergies Allergy Verified 06/02/19 12:07 Physical Exam Vitals: Vital Signs Temp Pulse Pulse Resp BP Pulse Ox 06/04/19 04:29 98.0 F 80 20 125/70 93 L 06/04/19 00:00 18 06/03/19 21:00 98.2 F 77 18 127/60 96 06/03/19 17:40 89 16 06/03/19 17:28 87 95 06/03/19 16:20 20 06/03/19 13:22 89 06/03/19 13:13 89 06/03/19 11:43 97.6 F 89 17 164/77 93 L 06/03/19 09:46 87 06/03/19 09:36 87 95 06/03/19 08:25 16 Intake and Output 06/03/19 06/04/19 06/04/19 22:59 06:59 14:59 Intake Total 780 590 Balance 780 590 Intake: Intake, IV Titration 300 Amount Sodium Chloride 0.9% 1, 300 000 ml @ 75 mls/hr IV . [id number] [facility] Rx#:[id number] Oral 480 590 Other: Voiding Method Bedside Commode Toilet Bedside Commode # Voids 1 1 Weight 49.442 kg - Constitutional General appearance: no acute distress - EENT Eyes: EOMI, PERRLA ENT: hearing grossly normal - Neck Neck: no lymphadenopathy - Respiratory Respiratory: right: diminished (Significantly diminished right lung sounds), left: CTA, negative: wheezing - Cardiovascular Rhythm: regular - Gastrointestinal General gastrointestinal: no distended, no tenderness - Integumentary Integumentary: no calor - Neurologic Neurologic: CNII-XII intact - Musculoskeletal Musculoskeletal: no generalized weakness - Psychiatric Psychiatric: A&O x's 3, appropriate affect, intact judgment & insight Results CBC & Chem 7: 06/03/19 07:21 06/03/19 07:21 Labs: Abnormal Lab Results - Last 24 Hours (Table) 06/03/19 Range/Units 07:21 WBC 22.1 H (3.8-10.6) k/uL Neutrophils # 20.8 H (1.3-7.7) k/uL Lymphocytes # 0.7 L (1.0-4.8) k/uL Microbiology - Last 24 Hours (Table) 06/02/19 10:52 Blood Culture - Preliminary Blood No Growth after [address] scan - chest: report reviewed, image reviewed Assessment and Plan Plan: The patient is a 73-year-old female with a history of a recently diagnosed metastatic adenocarcinoma of the right lung presenting with a large right hilar mass, with bilateral adrenal metastasis and a small INTERVENTIONAL CARDIOLOGIST metastasis. 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 She was planning on starting targeted therapy for her met mutation, when the patient became acutely short of breath this weekend. 1. Dyspnea: I do not feel this is secondary to COPD exacerbation, and the patient has no evidence of pulmonary embolism. When comparing her recent CT angiogram to her CT from 1 month prior, it is apparent that this mass has increased in size. The patient has had continued narrowing of the right intermediate bronchus with near complete closure of the upper lobe bronchus. This is likely the reason for her increased dyspnea. The patient may be a candidate for stenting according to pulmonary. I will discuss her case with pulmonary and medical oncology. We can also initiate palliative radiotherapy in attempt to keep open her bronchus. 2. MET-mutation: The patient has a targetable mutation for her NSCLC which confers an improved prognosis despite metastatic disease. Her medication has come in from the special pharmacy, but she has been unable to start it or pick it up. She is likely to have a good response to this as well and hopefully we will be able to start this soon. 3. Brain metastasis: Small, asymptomatic, will treat as outpatient after patient improves from current symptoms. Time with Patient: Greater than 30
[2019-06-04] MEDS: SYMBICORT 160-4.5 MCG INHALER INHALATION SCH ×2 (08:30→20:23)
[2019-06-04] MEDS: predniSONE 20 MG TAB PO SCH (08:37)
[2019-06-04] MEDS: DULoxetine HCL 60 MG CAPSULE.DR PO SCH (08:37)
[2019-06-04] MEDS: ACETAMINOPHEN TAB 325 MG TAB PO PRN (08:37)
[2019-06-04] MEDS: ESCITALOPRAM 20 MG TAB PO SCH (08:38)
[2019-06-04] MEDS: LEVOTHYROXINE 50 MCG TAB PO SCH (08:38)
[2019-06-04] MEDS: METOPROLOL SUCCINATE (ER) 50 MG TAB.ER.24H PO SCH (08:38)
[2019-06-04] MEDS: DIPHENOX-ATROP 2.5-0.025 MG 1 EACH TAB PO SCH ×3 (08:39→21:31)
[2019-06-04] MEDS: PANTOPRAZOLE 40 MG TABLET PO SCH (08:58)
--- NOTE | 2019-06-04 10:50 | P.PN ---
Subjective Progress Note Date: 06/04/19 On today's evaluation of 06/04/2019, and seeing this patient for a follow-up. She was seen yesterday and his CAT scan of the chest was reviewed. how previous summary bronchodilators and there are treatments to optimize her COPD. I wanted also to do an airway inspection to evaluate the bronchus intermedius knowing that the patient has a large hilar tumor encasing the bronchus intermedius causing significant amount of mass effect. Based on all this, the patient will be set up for a bronchoscopy tomorrow. Meanwhile, the patient was also seen by radiation oncology for possible palliative radiation therapy to the same area to prevent any possible collapse of the right lung. Meanwhile, I exa mination today, the patient diminished breath on the right compared to the left and for that reason a repeat chest x-ray will be done to make sure the right lung is not completely collapsed. No hemoptysis. No pleurisy. No fever. No chills. Objective - Vital Signs Vital signs: Vital Signs Temp 98.0 F 06/04/19 04:29 Pulse 86 06/04/19 08:38 Resp 20 06/04/19 04:29 BP 125/70 06/04/19 04:29 Pulse Ox 93 L 06/04/19 04:29 Intake & Output 06/03/19 06/04/19 06/04/19 18:59 06:59 18:59 Intake Total 1307 1370 Balance 1307 1370 Weight 49.442 kg Intake: Intake, IV Titration 657 300 Amount Sodium Chloride 0.9% 1, 657 300 000 ml @ 75 mls/hr IV . [id number] [facility] Rx#:[id number] Oral 650 1070 Other: Voiding Method Bedside Commode Toilet Bedside Commode # Voids 3 1 - Exam GENERAL EXAM: Alert, doesn't 73-year-old female patient, on 2 L nasal cannula, comfortable in no apparent distress. HEAD: Normocephalic. EYES: Normal reaction of pupils, equal size. NOSE: Clear with pink turbinates. THROAT: No erythema or exudates. NECK: No masses, no JVD. CHEST: No chest wall deformity. LUNGS: Equal air entry with rhonchi more so on the right lung. There is marked diminished breath sound the right compared to the left CVS: S1 and S2 normal with no audible murmur, regular rhythm. ABDOMEN: No hepatosplenomegaly, normal bowel sounds, no guarding or rigidity. SPINE: No scoliosis or deformity SKIN: No rashes CENTRAL NERVOUS SYSTEM: No focal deficits, tone is normal in all 4 extremities. EXTREMITIES: There is no peripheral edema. No clubbing, no cyanosis. Peripheral pulses are intact. - Labs CBC & Chem 7: 06/03/19 07:21 06/03/19 07:21 Labs: Abnormal Lab Results - Last 24 Hours (Table) 06/03/19 Range/Units 07:21 WBC 22.1 H (3.8-10.6) k/uL Neutrophils # 20.8 H (1.3-7.7) k/uL Lymphocytes # 0.7 L (1.0-4.8) k/uL Microbiology - Last 24 Hours (Table) 06/02/19 10:52 Blood Culture - Preliminary Blood No Growth after 24 hours Assessment and Plan Plan: #1 Acute hypoxic respiratory failure secondary to increasing right suprahilar mass which is measuring 7.8 x 5.9 x 7.6 and is encasing the right main pulmonary artery and the right upper lobe pulmonary artery. There is moderate right-sided pleural effusion. There is a 1.3 cm mass in the posterior basal segment of the left lower lobe. There is a 10.3 x 25.4 mm spiculated nodule in the posterior segment of the right upper lobe. Contiguous 10.7 mm lesion in the right upper lobe. #2 Known non-small lung cancer/adenocarcinoma, has not started treatment yet. Probable immune therapy. PD-L1 analysis 80% positive on the tumor proportion score #3 Suspected metastatic brain lesion that has a subtle rounded area with a central bone intensity which may reside in with the gyrus or possible sulcus of the left frontal lobe. #4 Acute exacerbation of chronic obstructive pulmonary disease. #5 History of colitis with profuse diarrhea. #6 Gastric esophageal reflux disease. #7 Hypertension #8 Hypothyroidism. #9 Migraine cephalgia. #10 Degenerative joint disease. Plan: Discussed the case with radiation oncology. We'll do an airway inspection tomorrow to evaluate the bronchus intermedius and status and decide if there is any endobronchial intervention needs to be done. Meanwhile, radiation oncologist on the case for possible palliative radiation therapy. The concern is development of a right middle lobe/right lower lobe collapse due to mass effect on the bronchus intermedius and narrowing. Meanwhile, continue bronchodilators. Continue prednisone burst taper. We'll continue to follow. Prognosis poor. Oncology is considering targeted therapy as the patient was found to have certain medications that potentially can be subjected to targeted treatment
--- NOTE | 2019-06-04 11:36 | XR ---
EXAMINATION TYPE: XR chest 1V DATE OF EXAM: 06/04/2019 COMPARISON: Prior chest x-ray and chest CT dated 06/02/2019 HISTORY: Lung cancer, redness of breath and chest pain TECHNIQUE: Single frontal view of the chest is obtained. FINDINGS: There has been interval development of increased density at the right lung base which obsc ures the hemidiaphragm. No evident pneumothorax. Right hilar mass, abnormal soft tissue in the right upper lobe persists. There is volume loss in the right hemithorax. Heart size is likely stable. There are overlying cardiac leads. IMPRESSION: There may be atelectasis and effusion which have progressed in the interval.
[2019-06-04] MEDS: Acetaminophen-Codeine 300-30mg TAB PO PRN ×2 (13:23→20:17)
--- NOTE | 2019-06-04 13:59 | P.PN ---
Subjective Progress Note Date: 06/04/19 Ms. Singh is a very pleasant pt of Dr. Conklin who presented with cough and small amount hemoptysis x 4 weeks before diagnosis, she stated having progressive exertional dyspnea X 6 month. CXR followed by CT revealed a large rt hilar mass with mediastinal lymphadenopathy. PET revealed FDG-Avid neoplastic process in lung mass and mediastinal lymphadenopathy, as well as bilateral adrenal metastasis, R>L. Bronchoscopy with Dr. Smiley 05/07/19 revealed NSCLC adenocarcinoma. Pt has a 30 year pack Hx of smoking, quitting 30 years ago, has chronic colitis, treats with Dr. Ocasio. No family history of malignancy. She was seen by Dr. Conklin on 05/16 at which time pathology, imaging, stage IV disease, natural history of disease and options of care were all discussed. 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 Oral treatment ordered with plans to begin later this week. Patient presented with progressive worsening shortness of breath and dyspnea on exertion and worsening generalized weakness. She was extensively evaluated in the emergency room, lactic acid-2.3 which improved to 0.7 after hydration. D- dimer elevated at 2.86 and CTA-chest reported negative for PE, Right pulmonary artery is encased, small pericardial infusion. Rad Onc has seen pt. and plan for palliative radiation to reduce the mass and to help open right upper lobe and middle lobe bronchus and right pulmonary artery. They also recommended outpatient palliative brain radiation for small brain metastasis. Today she complains of worsening anxiety despite of being on treatment but denies other complaints on a 14 point review of systems. Objective - Vital Signs Vital signs: Vital Signs Temp 98 F 06/04/19 12:18 Pulse 80 06/04/19 12:18 Resp 18 06/04/19 12:18 BP 145/77 06/04/19 12:18 Pulse Ox 92 L 06/04/19 12:18 Intake & Output 06/03/19 06/04/19 06/04/19 18:59 06:59 18:59 Intake Total 1307 1370 Balance 1307 1370 Weight 49.442 kg Intake: Intake, IV Titration 657 300 Amount Sodium Chloride 0.9% 1, 657 300 000 ml @ 75 mls/hr IV . [id number] [facility] Rx#:[id number] Oral 650 1070 Other: Voiding Method Bedside Commode Toilet Toilet Bedside Commode Bedside Commode # Voids 3 1 1 - Constitutional General appearance: Present: cooperative, no acute distress - EENT Eyes: Present: EOMI, normal appearance ENT: Present: hearing grossly normal, NA/AT - Neck Neck: Present: normal ROM. Absent: lymphadenopathy, rigidity, stridor, thyromegaly - Respiratory Respiratory: bilateral: CTA, diminished (Right mid and upper zones.), negative: dullness, rales, rhonchi, wheezing - Cardiovascular Rhythm: regular Heart sounds: normal: S1, S2 Abnormal Heart Sounds: Absent: systolic murmur, diastolic murmur, S3 Gallop, S4 Gallop - Gastrointestinal General gastrointestinal: Present: normal bowel sounds, soft. Absent: distended, rigid, tenderness - Neurologic Neurologic: Present: CNII-XII intact. Absent: focal deficits - Psychiatric Psychiatric: Present: A&O x's 3, appropriate affect, intact judgment & insight - Allied health notes Allied health notes reviewed: nursing - Labs CBC & Chem 7: 06/03/19 07:21 06/03/19 07:21 Labs: Microbiology - Last 24 Hours (Table) 06/02/19 10:52 Blood Culture - Preliminary Blood No Growth after 48 hours - Imaging and Cardiology CT Scan - head: report reviewed Assessment and Plan Plan: Assessment: Acute hypoxic respiratory failure due to lung adenocarcinoma COPD exacerbation Leukocytosis Lactic acidosis Elevated d-dimer History of colitis Hypothyroidism Hypertension Plan: Better pain management with Tylenol 3 when necessary. Continue current management including steroids. Patient will be going for palliative radiation therapy for to the chest lesion and hope to improve opening of the right lobar bronchi and right pulmonary artery. Patient will be started on CRIZOTINIB as it is now available and patient is to fill out some paperwork prior to initiation of the therapy. Patient does have MET mutation and PDL1 expression reported in her cancer cells. Patient is being followed by oncology, radiation oncology and pulmonary. I will consult psychiatric for the management of her severe anxiety/depression (patient was weeping during the interview). Patient was given a lot of counseling regarding anxiety management and total time spent was more than 30 minutes and more than 50% of that was spent in counseling.
--- NOTE | 2019-06-04 17:34 | P.PN ---
Subjective Progress Note Date: 06/04/19 Principal diagnosis: Difficulty in breathing, hypoxia. Metastatic non-small cell lung cancer In follow-up today patient's respiratory status is stable, she is extremely short of breath with position changes, she is unable to even 5-10 feet without significant shortness of breath. Patient has done denying any other complaints. Objective - Vital Signs Vital signs: Vital Signs Temp 98 F 06/04/19 12:18 Pulse 83 06/04/19 16:54 Resp 18 06/04/19 17:02 BP 145/77 06/04/19 12:18 Pulse Ox 91 L 06/04/19 16:57 Intake & Output 06/03/19 06/04/19 06/04/19 18:59 06:59 18:59 Intake Total 1307 1370 480 Balance 1307 1370 480 Weight 49.442 kg Intake: Intake, IV Titration 657 300 Amount Sodium Chloride 0.9% 1, 657 300 000 ml @ 75 mls/hr IV . [id number] [facility] Rx#:[id number] Oral 650 1070 480 Other: Voiding Method Bedside Commode Toilet Toilet Bedside Commode Bedside Commode # Voids 3 1 2 - Constitutional General appearance: Present: cooperative, no acute distress, thin - EENT Eyes: Present: anicteric sclerae, EOMI ENT: Present: hearing grossly normal - Respiratory Respiratory: right: diminished - Cardiovascular Rhythm: regular - Peripheral edema leg Peripheral Edema: bilateral: None - Gastrointestinal General gastrointestinal: Present: soft - Integumentary Integumentary: Present: normal - Neurologic Neurologic: Present: CNII-XII intact - Musculoskeletal Musculoskeletal: Present: strength equal bilaterally - Psychiatric Psychiatric: Present: A&O x's 3, appropriate affect, intact judgment & insight - Labs CBC & Chem 7: 06/03/19 07:21 06/03/19 07:21 Labs: Microbiology - Last 24 Hours (Table) 06/02/19 10:52 Blood Culture - Preliminary Blood No Growth after 48 hours - Imaging and Cardiology Chest x-ray: report reviewed Assessment and Plan (1) Hypoxic Narrative/Plan: Patient is being treated by pulmonary with steroids and multiple medications. Hypoxia related to encased pulmonary artery. Reviewed Pulmonary notes. Plan is for an exploratory bronchoscopy to see if patient could benefit from direct intervention. Radiation Oncology has simulated patient with plans for palliative radiation. We'll continue to follow with patient. Case mgmt consulted to cruz for home O2 Current Visit: Yes Status: Acute Priority: High Code(s): R09.02 - HYPOXEMIA SNOMED Code(s): 470612998 (2) Metastatic primary lung cancer Narrative/Plan: Guardant 360 testing reveled tumor mutation [id number]. Crizotinib is 1st line FDA approved treatment for MET positive NSCLC. PDL1 is positive at 80% but, immunotherapy is second line when there is mutation targeted therapy. I reviewed this with the patient. She verbalized understanding. I will provide patient with an education booklet and drug monograph for review so she can ask questions. We'll confirm with specialty drug pharmacy delivery of drug. We'll ask for it as soon as possible so the patient jaclyn begin sooner than later. Will briefly review the case with Radiation Oncologist. If there is plan for short course of radiation then patient will likely be able to begin crizotinib as soon as it is received. Current Visit: Yes Status: Acute Priority: High Code(s): C34.90 - MALIGNANT NEOPLASM OF UNSP PART OF UNSP BRONCHUS OR LUNG SNOMED Code(s): 81400195 (3) Brain metastases Narrative/Plan: Plan is for SRT 1 dose. This will be done outpatient. Current Visit: Yes Status: Acute Priority: High Code(s): C79.31 - SECONDARY MALIGNANT NEOPLASM OF BRAIN SNOMED Code(s): 76417892 Time with Patient: Greater than 30 (>305min spent, >50% counseling and coordinating care)
[2019-06-04] MEDS: MONTELUKAST 10 MG TAB PO SCH (20:18)
[2019-06-05] MEDS: IPRATROPIUM-ALBUTEROL 3 ML NEB INHALATION SCH ×6 (03:15→23:23)
[2019-06-05] MEDS: LEVOTHYROXINE 50 MCG TAB PO SCH ×2 (04:53→08:28)
[2019-06-05] MEDS: SYMBICORT 160-4.5 MCG INHALER INHALATION SCH ×2 (07:31→20:03)
[2019-06-05] MEDS: predniSONE 20 MG TAB PO SCH (08:24)
[2019-06-05] MEDS: DIPHENOX-ATROP 2.5-0.025 MG 1 EACH TAB PO SCH ×3 (08:24→21:24)
[2019-06-05] MEDS: ESCITALOPRAM 20 MG TAB PO SCH (08:24)
[2019-06-05] MEDS: METOPROLOL SUCCINATE (ER) 50 MG TAB.ER.24H PO SCH (08:24)
[2019-06-05] MEDS: PANTOPRAZOLE 40 MG TABLET PO SCH (08:24)
[2019-06-05] MEDS: DULoxetine HCL 60 MG CAPSULE.DR PO SCH (08:24)
[2019-06-05] MEDS: SODIUM CHLORIDE 0.9% 1,000 ML IV SCH ×2 (08:33→21:22)
--- NOTE | 2019-06-05 10:34 | P.PN ---
Subjective Progress Note Date: 06/05/19 Patient reports that her shortness of breath is progressively getting worse and she is getting very short of breath with the getting up to the bedside commode. Nurses confirms this complaints and reported that patient is physically very short of breath with minimal activity. Patient has radiation oncologyradiation field mapping done yesterday and will go for palliative radiation therapy today to her right hilar mass. Early in the afternoon patient is scheduled for bronchoscopy by Dr. Calles and he will try to do stenting of the right upper lobe and middle lobe main bronchus external compression from the tumor. Patient denies chest pain, palpitation, headaches, nausea, vomiting and denies rest of the review system. Patient reported that psychiatrist has not seen her yet but since yesterday's discussion with this communications writer and some psychotherapy her anxiety is much better and she is coping her medical conditions fairly well. Objective - Vital Signs Vital signs: Vital Signs Temp 98.0 F 06/05/19 05:00 Pulse 86 06/05/19 07:44 Resp 26 H 06/05/19 05:00 BP 121/63 06/05/19 05:00 Pulse Ox 92 L 06/05/19 05:00 Intake & Output 06/04/19 06/05/19 06/05/19 18:59 06:59 18:59 Intake Total 480 840 Balance 480 840 Intake: Oral 480 840 Other: Voiding Method Toilet Toilet Bedside Commode Bedside Commode Bedside Commode # Voids 2 4 - Constitutional General appearance: Present: cooperative, no acute distress (At rest but very short of breath with minimal activity.) - EENT Eyes: Present: EOMI, normal appearance ENT: Present: hearing grossly normal, NA/AT - Neck Neck: Present: normal ROM - Respiratory Respiratory: right: diminished (Middle and upper zone breath sounds are signific antly decreased on right side.), left: CTA, negative: dullness, rales, rhonchi, wheezing - Cardiovascular Rhythm: regular Heart sounds: normal: S1, S2 Abnormal Heart Sounds: Absent: systolic murmur, diastolic murmur, S3 Gallop, S4 Gallop - Gastrointestinal General gastrointestinal: Present: normal bowel sounds, soft. Absent: distended, rigid, tenderness - Neurologic Neurologic: Present: CNII-XII intact. Absent: focal deficits - Psychiatric Psychiatric: Present: A&O x's 3, appropriate affect - Allied health notes Allied health notes reviewed: nursing - Labs CBC & Chem 7: 06/03/19 07:21 06/03/19 07:21 Labs: Microbiology - Last 24 Hours (Table) 06/02/19 10:52 Blood Culture - Preliminary Blood No Growth after 48 hours Assessment and Plan Plan: Assessment: Acute hypoxic respiratory failure due to lung adenocarcinoma COPD exacerbation Leukocytosis Lactic acidosis Elevated d-dimer History of colitis Hypothyroidism Hypertension Plan: I will continue current management for now including her pain medications. Patient condition may improve after radiation therapy to the right perihilar mass once is start shrinking and increasing the right pulmonary blood supply. Her condition may also improve after stents placement by Dr. Calles later today. Patient stated that her chemotherapy is with her oncologist's office and she has to sign some documents before it can be initiated. Overall patient condition is guarded and prognosis is under to mind at this point depending upon her response to the chemotherapy. Time with Patient: Less than 30
[2019-06-05] MEDS ORDERED: LACTATED RINGERS 1,000 ML IV ONE (12:35)
[2019-06-05] MEDS ORDERED: PROPOFOL 10 MG/ML 20 ML VIAL IV ONE (12:52)
[2019-06-05] MEDS ORDERED: LIDOCAINE 1% INJ 10MG/ML (20 ML MDV) ONE (12:52)
--- NOTE | 2019-06-05 13:07 | P.CN ---
Psychiatric Consult - . Consult date: 06/05/19 Consult:: The patient was not available at her room at the time I tried to evaluate her for psychiatric consult. Nursing report patient went to have bronchoscope procedure and will not be back before 1-2 hours. Psychiatry team will come back later today or tomorrow to respond to the consult. As per nursing report, there is no acute psychiatric emergency symptoms and no report of suicidal/ homicidal ideation, manic or psychotic symptoms. Also, there is no report of severe unremitting anxiety or panic attacks. Discussed the case over the phone with the attending physician Dr. Macario who reported that the patient has history of anxiety disorder and she is recently diagnosed with metastatic lung cancer, and her anxiety is not well controlled. Again, reportedly no symptoms of acute psychiatric emergency, suicidal or homicidal ideation, manic or psychotic symptoms. 06/05/19 13:04
--- NOTE | 2019-06-05 16:55 | P.PN ---
Subjective Progress Note Date: 06/05/19 Principal diagnosis: Acute hypoxic respiratory failure secondary to increasing right suprahilar mass On 06/05/2017 patient seen in follow-up on oncology floor, she is awake and a lert, however she continues to be very dyspneic with the latest exertion, and apparently she was extremely short of breath even getting up to the commode to use the bathroom. She remains on supplemental oxygen currently on 4 L, with a pulse ox of 92-93%, afebrile, hemodynamically stable, lung sounds reveal diminished air entry on the right. No significant wheezing, cough or congestion, no hemoptysis. She is scheduled for bronchoscopy with BAL today and the possibility of stenting of the right mainstem bronchus/bronchus intermedius. She has been nothing by mouth since midnight, but no acute events overnight, she continues on bronchodilators, oral prednisone. Objective - Vital Signs Vital signs: Vital Signs Temp 98.5 F 06/05/19 14:00 Pulse 74 06/05/19 16:37 Resp 16 06/05/19 14:45 BP 137/66 06/05/19 14:45 Pulse Ox 96 06/05/19 16:37 Intake & Output 06/04/19 06/05/19 06/05/19 18:59 06:59 18:59 Intake Total 916 684 1290 Balance 448 752 7701 Intake: IV 650 Intake, IV Titration 600 Amount Sodium Chloride 0.9% 1, 600 000 ml @ 75 mls/hr IV . [id number] [facility] Rx#:[id number] Oral 480 840 Other: Voiding Method Toilet Toilet Bedside Commode Bedside Commode Bedside Commode # Voids 2 4 1 # Bowel Movements 1 - Exam GENERAL EXAM: Alert, pleasant, 73-year-old white female patient, on 4 L of oxygen with a pulse ox of 92-93%, short of breath with minimal exertion comfortable in no apparent distress. HEAD: Normocephalic/atraumatic. EYES: Normal reaction of pupils, equal size. Conjunctiva pink, sclera white. NOSE: Clear with pink turbinates. THROAT: No erythema or exudates. NECK: No masses, no JVD, no thyroid enlargement, no adenopathy. CHEST: No chest wall deformity. Symmetrical expansion. LUNGS: Equal air entry with mesh sounds on the right, no wheezing rhonchi on the left. CVS: Regular rate and rhythm, normal S1 and S2, no gallops, no murmurs, no rubs ABDOMEN: Soft, nontender. No hepatosplenomegaly, normal bowel sounds, no guarding or rigidity. EXTREMITIES: No clubbing, no edema, no cyanosis, 2+ pulses and upper and lower extremities. MUSCULOSKELETAL: Muscle strength and tone normal. SPINE: No scoliosis or deformity SKIN: No rashes CENTRAL NERVOUS SYSTEM: Alert and oriented -3. No focal deficits, tone is normal in all 4 extremities. PSYCHIATRIC: Alert and oriented -3. Appropriate affect. Intact judgment and insight. - Labs CBC & Chem 7: 06/03/19 07:21 06/03/19 07:21 Labs: Microbiology - Last 24 Hours (Table) 06/02/19 10:52 Blood Culture - Preliminary Blood No Growth after 72 hours Assessment and Plan Plan: #1 Acute hypoxic respiratory failure secondary to increasing right suprahilar mass which is measuring 7.8 x 5.9 x 7.6 and is encasing the right main pulmonary artery and the right upper lobe pulmonary artery. There is moderate right-sided pleural effusion. There is a 1.3 cm mass in the posterior basal segment of the left lower lobe. There is a 10.3 x 25.4 mm spiculated nodule in the posterior segment of the right upper lobe. Contiguous 10.7 mm lesion in the right upper lobe. #2 Known non-small lung cancer/adenocarcinoma with brain metastasis, has not started treatment yet. Probable immune therapy, and palliative radiotherapy. PD-L1 analysis 80% positive on the tumor proportion score #3 Suspected metastatic brain lesion that has a subtle rounded area with a central bone intensity which may reside in with the gyrus or possible sulcus of the left frontal lobe. #4 Acute exacerbation of chronic obstructive pulmonary disease. #5 History of colitis with profuse diarrhea. #6 Gastric esophageal reflux disease. #7 Hypertension #8 Hypothyroidism. #9 Migraine cephalgia. #10 Degenerative joint disease. Plan: Patient underwent bronchoscopy, and successful placement of a stent into the bronchus intermedius. Tolerated procedure very well, no complications were encountered, she is on 4 L of oxygen, with pulse ox of 96%, doing well. We will continue with medical treatment, continue oral steroids. Radiation oncology has been consulted, and palliative radiotherapy will be initiated in an attempt to keep open her bronchus. We will continue to follow I performed a history & physical examination of the patient and discussed their management with my nurse practitioner, Elinor Pastor. I reviewed the nurse practitioner's note and agree with the documented findings and plan of care. Lung sounds are positive for mesh breath sounds on the right side throughout the lung [place]. The findings and the impression was discussed with the patient. I attest to the documentation by the nurse practitioner. Time with Patient: Less than 30
--- NOTE | 2019-06-05 18:28 | P.PN ---
Subjective Progress Note Date: 06/05/19 Principal diagnosis: Difficulty in breathing, hypoxia. Metastatic non-small cell lung cancer Patient is status post bronchoscopy with placement of a 10 mm stent. Visually the patient looks in less respiratory distress. She is currently still on a Ventimask post procedure at 4 L, satting 93%. She does have a little bit of a cough, she currently denies any hemoptysis, she has not attempted to get up on her own so she is not sure how her breathing is with activity. Otherwise she has no complaints and feels fairly well. Objective - Vital Signs Vital signs: Vital Signs Temp 98.5 F 06/05/19 14:00 Pulse 76 06/05/19 17:37 Resp 16 06/05/19 14:45 BP 136/62 06/05/19 17:37 Pulse Ox 96 06/05/19 17:37 Intake & Output 06/04/19 06/05/19 06/05/19 18:59 06:59 18:59 Intake Total 126 790 5399 Balance 319 426 1524 Intake: IV 650 Intake, IV Titration 600 Amount Sodium Chloride 0.9% 1, 600 000 ml @ 75 mls/hr IV . [id number] [facility] Rx#:[id number] Oral 480 840 Other: Voiding Method Toilet Toilet Bedside Commode Bedside Commode Bedside Commode # Voids 2 4 1 # Bowel Movements 1 - Constitutional General appearance: Present: average body habitus, cooperative, no acute distress - EENT Eyes: Present: anicteric sclerae, EOMI - Respiratory Respiratory: right: diminished, left: CTA - Cardiovascular Rhythm: regular Heart sounds: normal: S1, S2 Abnormal Heart Sounds: Absent: systolic murmur, diastolic murmur, rub, S3 Gallop, S4 Gallop, click, other - Peripheral edema leg Peripheral Edema: bilateral: None - Gastrointestinal General gastrointestinal: Present: normal bowel sounds, soft - Integumentary Integumentary: Present: pale - Neurologic Neurologic: Present: CNII-XII intact - Musculoskeletal Musculoskeletal: Present: generalized weakness - Psychiatric Psychiatric: Present: A&O x's 3, appropriate affect, intact judgment & insight - Labs CBC & Chem 7: 06/03/19 07:21 06/03/19 07:21 Labs: Microbiology - Last 24 Hours (Table) 06/02/19 10:52 Blood Culture - Preliminary Blood No Growth after 72 hours Assessment and Plan (1) Hypoxic Narrative/Plan: Patient is being treated by pulmonary with steroids and multiple medications and is now s/p bronchial stent. Better to evaluate after pt has has had adequate time to recuperate from procedure. Radiation Oncology has simulated patient with plans for palliative radiation with plan for a dose tomorrow. Discussed with Rad Onc, plan is for around 10 treatments Case mgmt consulted to eval for home O2 Current Visit: Yes Status: Acute Priority: High Code(s): R09.02 - HYPOXEMIA SNOMED Code(s): 709529809 (2) Metastatic primary lung cancer Narrative/Plan: Guardant 360 testing reveled tumor mutation [id number]. Crizotinib is 1st line FDA approved treatment for MET positive NSCLC. PDL1 is positive at 80% but, immunotherapy is second line when there is mutation targeted therapy. Crizotinib drug monograph left with pt for review. Have to have pt confirm delivery of drug with specialty pharmacy, which she cannot do until she is discharged. Discussed with Radiation Oncologist if concurrent XRT and oral therapy would be too toxic for pt. [place] that pt could start oral treatment as soon as med received as she will likely be at least 1/2 of XRT completed. Will have pt begin crizotinib as soon as it is received. Current Visit: Yes Status: Acute Priority: High Code(s): C34.90 - MALIGNANT NEOPLASM OF UNSP PART OF UNSP BRONCHUS OR LUNG SNOMED Code(s): 46966458 (3) Brain metastases Narrative/Plan: Plan is for SRT 1 dose. This will be done outpatient. Current Visit: Yes Status: Acute Priority: High Code(s): C79.31 - SECONDARY MALIGNANT NEOPLASM OF BRAIN SNOMED Code(s): 22977722 Plan: All pt questions and concerns addressed
[2019-06-05] MEDS: MONTELUKAST 10 MG TAB PO SCH (21:22)
[2019-06-05] MEDS: HYDROcodone/APAP 5-325MG 1 EACH TAB PO PRN (21:26)
[2019-06-06] MEDS: IPRATROPIUM-ALBUTEROL 3 ML NEB INHALATION SCH ×6 (04:32→23:32)
--- NOTE | 2019-06-06 08:44 | P.PCN ---
Date of Procedure: 06/05/19 Preoperative Diagnosis: Non-small cell lung cancer, right lung atelectasis/collapse Postoperative Diagnosis: 1 endobronchial tumor completely obstructing the right mainstem bronchus and bronchus intermedius proximally 2 debulking of endobronchial tumor 3 insertion of a metallic Ultraflex endobronchial stent 10 x 40 mm in the bronchus intermedius Procedure(s) Performed: Flexible bronchoscopy, insertion of an endobronchial stent Anesthesia: COURTNEY Surgeon: Doc Calles Mc [place] Stitcher #1: Araceli Sneed Pathology: other Condition: stable Operative Findings: This procedure was done and operating room. The patient was brought in. A timeout was done. A consent was signed. Following that, the procedure was done under general anesthesia and airway was secured with a LMA. There insertion of another LMA was done by FRONT SERVICES AGENT and anesthesia the bedside. Adequate ventilation and oxygenation was achieved. The patient was hemodynamically stable After securing the airway, the flexible bronchoscope was inserted through the LMA tube and was advanced into the upper airway. The vocal cords were identified. A total of 2 mL of 1% lidocaine was applied to the vocal cords and following that the bronchoscope was moved past the vocal cords into the upper trachea. The bronchoscope was advanced and intact trachea was evaluated and was within normal limits. Then the bronchoscope was moved to the right side and the right mainstem bronchus was pretty much entirely occluded with endobronchial tumor. This tumor was originating from the right upper lobe area extending medially and causing significant obstruction and narrowing of the right mainstem bronchus. The tumor itself was quite irregular, friable, vascular, and had a cauliflower appearance. Examination of the left side including left mainstem bronchus and the left upper and left lower lobe was within normal limits. At this point, the bronchoscope was moved to the right mainstem bronchus and further inspection of the endobronchial tumor was done. I was able to find a slit opening medially for which I was able to pass a tiny bronchoscope with it out in diameter of 4 mm. The segment that was stenotic and was involved with endobronchial tumor was probably 2 cm at length. Distally, the bronchus intermedius was patent and I was able to identify the right middle lobe bronchus and right lower lobe bronchus. Accurate measurements were obtained. The segment was stenotic was probably in the order of 4-5 cm in size. At that point, mechanical blocking of the endobronchial tumor was done. I was able to achieve some degree of patency and I estimated the airway to be patent in the order of 6 mm. A forceps was used also to metabolic residual endobronchial pieces. At that point, it was decided to put an endobronchial stent in the distal right mainstem bronchus and bronchus intermedius. A guidewire was passed through the bronchoscope into the right lower lobe bronchus. The bronchoscope was gradually retracted and removed over a guidewire and the guidewire was secured in place. At that point, I did not inspection and I reintubated the patient with the bronchoscope and I made sure that the guidewire was in a good location. Following that, a 10 x 4 metallic covered Ultraflex [employer] endobronchial stent was inserted over the guidewire and was smoothly past into the right mainstem bronchus and then to the bronchus intermedius. The positioning of the tube was again confirmed using the bronchoscope as the patie nt was reintubated with the bronchoscope and the position of the Ultraflex stent was confirmed. Under direct visualization, the stent was deployed in the position of the stent was felt to be adequate distally. Proximally, there was some irregularities and endobronchial tumor narrowing the proximal end of the tube, however I estimated the patency of the airway to be in the order of 5-6 mm. The stent was in good location. The bronchoscope was removed. The patient was subsequently taken off sedation and LMA was removed and she was transferred recovery in stable condition. The patient will obviously need radiation therapy post and the bronchial stent insertion. Daily chest x-ray. Incentive spirometer. Mother bronchial bleeding. Procedure was successful. No oxygen desaturations. No respiratory distress post anesthesia.
[2019-06-06] MEDS: ESCITALOPRAM 20 MG TAB PO SCH (09:05)
[2019-06-06] MEDS: METOPROLOL SUCCINATE (ER) 50 MG TAB.ER.24H PO SCH (09:05)
[2019-06-06] MEDS: DIPHENOX-ATROP 2.5-0.025 MG 1 EACH TAB PO SCH ×3 (09:05→21:07)
[2019-06-06] MEDS: predniSONE 20 MG TAB PO SCH (09:05)
[2019-06-06] MEDS: PANTOPRAZOLE 40 MG TABLET PO SCH (09:05)
[2019-06-06] MEDS: LEVOTHYROXINE 50 MCG TAB PO SCH (09:05)
[2019-06-06] MEDS: DULoxetine HCL 60 MG CAPSULE.DR PO SCH (09:06)
[2019-06-06] MEDS: SYMBICORT 160-4.5 MCG INHALER INHALATION SCH ×2 (09:12→19:29)
--- NOTE | 2019-06-06 11:06 | P.PN ---
Subjective Progress Note Date: 06/06/19 Patient reports that her shortness of breath is progressively getting better since placement of stent yesterday. She reports that she is able to walk to the bathroom and not getting severely short of breath. Patient still requiring 4 L of nasal cannula oxygen with pulse ox around 92-95%. Patient did not receive her palliative 1 dose palliative radiation therapy to the chest yesterday as her both procedure coincided and she was taken to bronchoscopy earlier. Patient is scheduled for her palliative radiation treatment today. Patient reports feeling weak and walking to the bathroom and required some help from the nurses. She stated that she and her takes care of each other and she should be fine upon going home. Patient denies chest pain, palpitation, nausea, vomiting, fever, chills. Objective - Vital Signs Vital signs: Vital Signs Temp 98.1 F 06/06/19 04:48 Pulse 83 06/06/19 09:22 Resp 16 06/06/19 04:48 BP 156/73 06/06/19 04:48 Pulse Ox 97 06/06/19 09:13 Intake & Output 06/05/19 06/06/19 06/06/19 18:59 06:59 18:59 Intake Total 1250 2200 Balance 1250 2200 Intake: IV 650 Intake, IV Titration 600 1250 Amount Sodium Chloride 0.9% 1, 600 1250 000 ml @ 75 mls/hr IV . [id number] [facility] Rx#:[id number] Oral 950 Other: Voiding Method Bedside Commode Bedside Commode # Voids 1 2 # Bowel Movements 1 - Constitutional General appearance: Present: cooperative, no acute distress - EENT Eyes: Present: EOMI, normal appearance ENT: Present: hearing grossly normal, NA/AT - Neck Neck: Present: normal ROM. Absent: lymphadenopathy, rigidity, stridor, thyromegaly - Respiratory Respiratory: right: diminished (But better air entry over the roght mid and upper zones.), rales, rhonchi, left: CTA, negative: dullness, wheezing - Cardiovascular Rhythm: regular Heart sounds: normal: S1, S2 Abnormal Heart Sounds: Absent: systolic murmur, diastolic murmur, S3 Gallop, S4 Gallop - Gastrointestinal General gastrointestinal: Present: normal bowel sounds, soft. Absent: distended, rigid, tenderness - Neurologic Neurologic: Present: CNII-XII intact - Psychiatric Psychiatric: Present: A&O x's 3, appropriate affect - Allied health notes Allied health notes reviewed: nursing - Labs CBC & Chem 7: 06/03/19 07:21 06/03/19 07:21 Labs: Microbiology - Last 24 Hours (Table) 06/05/19 13:30 Gram Stain - Preliminary Bronchial Washings - Right Bronchial Washings Culture - Preliminary 06/05/19 13:30 Fungal Culture - Preliminary Bronchial Washings - Right 06/05/19 13:30 Acid Fast Bacilli Culture - Preliminary Bronchial Washings - Right 06/02/19 10:52 Blood Culture - Preliminary Blood No Growth after 72 hours Assessment and Plan Plan: Assessment: Acute hypoxic respiratory failure due to lung adenocarcinoma COPD exacerbation Leukocytosis Lactic acidosis Elevated d-dimer History of colitis Hypothyroidism Hypertension Plan: I will continue current management for now including her pain medications. Patient condition may improve after radiation therapy to the right perihilar mass once is start shrinking and increasing the right pulmonary blood supply. Her condition has improved after stent placement by Dr. Calles yesterday. Patient will get brain radiation therapy as put patient and she stated that her chemotherapy is with her oncologist's office and she still has to sign some documents before it can be initiated. Overall patient condition is guarded and prognosis is undetermined at this point and is depending upon her response to the chemotherapy. Will consult PT/OT for evaluation and management and also involve Warehouse Person for home O2 and home care and need post discharge. Possible d/c home in 1-2 days.
[2019-06-06] MEDS: SODIUM CHLORIDE 0.9% 1,000 ML IV SCH (11:23)
--- NOTE | 2019-06-06 11:43 | XR ---
EXAMINATION TYPE: XR chest 1V DATE OF EXAM: 06/06/2019 COMPARISON: CT dated 06/02/2019 HISTORY: Right lung collapse. Nodule seen on the exam of 06/02/2019 TECHNIQUE: Single frontal view of the chest is obtained. FINDINGS: New density in the right upper lung appears cavitary and rounded measuring up to 9.3 cm. I n the setting of patient's known right upper lobe collapse the partially aerated cavitary portion may simply represent partially aerated nonatelectatic lung. There is rightward shift of the trachea sugg esting volume loss. Right basilar opacity is slightly improved from the prior but does persist. Small er right pleural effusion. Left lung is well aerated. Cardiomediastinal silhouette is shifted to the right secondary to volume loss. IMPRESSION: Right upper lobe collapse secondary to the known right suprahilar mass encasing the righ t main pulmonary artery. Improved aeration of the right lower lung however a spiculated right basilar densities remain with small right pleural effusion. Rightward mediastinal shift is secondary to the volume loss.
--- NOTE | 2019-06-06 14:22 | P.PN ---
Subjective Progress Note Date: 06/06/19 Principal diagnosis: Acute hypoxic respiratory failure secondary to increasing right suprahilar mass On 06/05/2017 patient seen in follow-up on oncology floor, she is awake and a lert, however she continues to be very dyspneic with the latest exertion, and apparently she was extremely short of breath even getting up to the commode to use the bathroom. She remains on supplemental oxygen currently on 4 L, with a pulse ox of 92-93%, afebrile, hemodynamically stable, lung sounds reveal diminished air entry on the right. No significant wheezing, cough or congestion, no hemoptysis. She is scheduled for bronchoscopy with BAL today and the possibility of stenting of the right mainstem bronchus/bronchus intermedius. She has been nothing by mouth since midnight, but no acute events overnight, she continues on bronchodilators, oral prednisone. On 06/06/2019 patient seen in follow-up on medical surgical floor. She is breathing easier today, she is able to tolerate more activity, she has been up ambulating to the bathroom, and tolerating activity much better compared to yesterday, yesterday she underwent bronchoscopy with stent placement into her right mainstem bronchus and right intermedius, repeat chest x-ray today has been reviewed showing right upper lobe collapse secondary to the known right suprahilar mass encasing the right main pulmonary artery, and improved aeration of the right lower lung however a spiculated right basilar densities remain with small right pleural effusion. And there is rightward mediastinal shift secondary to the volume loss. The patient remains stable, she is on 4 L of oxygen with a pulse ox of 97%, no fever no chills, lung sounds reveal better air entry noted over right lower lobe appeared to yesterday's exam, no significant cough or congestion. Patient is awaiting radiation therapy today at 2:00 Objective - Vital Signs Vital signs: Vital Signs Temp 98.1 F 06/06/19 04:48 Pulse 64 06/06/19 12:25 Resp 16 06/06/19 04:48 BP 156/73 06/06/19 04:48 Pulse Ox 97 06/06/19 09:13 Intake & Output 06/05/19 06/06/19 06/06/19 18:59 06:59 18:59 Intake Total 1250 2200 Balance 1250 2200 Intake: IV 650 Intake, IV Titration 600 1250 Amount Sodium Chloride 0.9% 1, 600 1250 000 ml @ 75 mls/hr IV . [id number] [facility] Rx#:[id number] Oral 950 Other: Voiding Method Bedside Commode Bedside Commode # Voids 1 2 # Bowel Movements 1 - Exam GENERAL EXAM: Alert, pleasant, 73-year-old white female patient, on 4 L of oxygen with a pulse ox of 95%, comfortable in no apparent distress. HEAD: Normocephalic/atraumatic. EYES: Normal reaction of pupils, equal size. Conjunctiva pink, sclera white. NOSE: Clear with pink turbinates. THROAT: No erythema or exudates. NECK: No masses, no JVD, no thyroid enlargement, no adenopathy. CHEST: No chest wall deformity. Symmetrical expansion. LUNGS: Equal air entry with improved air entry over right lower lobe, no wheezing rhonchi on the left. CVS: Regular rate and rhythm, normal S1 and S2, no gallops, no murmurs, no rubs ABDOMEN: Soft, nontender. No hepatosplenomegaly, normal bowel sounds, no guarding or rigidity. EXTREMITIES: No clubbing, no edema, no cyanosis, 2+ pulses and upper and lower extremities. MUSCULOSKELETAL: Muscle strength and tone normal. SPINE: No scoliosis or deformity SKIN: No rashes CENTRAL NERVOUS SYSTEM: Alert and oriented -3. No focal deficits, tone is normal in all 4 extremities. PSYCHIATRIC: Alert and oriented -3. Appropriate affect. Intact judgment and insight. - Labs CBC & Chem 7: 06/03/19 07:21 06/03/19 07:21 Labs: Microbiology - Last 24 Hours (Table) 06/02/19 10:52 Blood Culture - Preliminary Blood No Growth after 96 hours 06/05/19 13:30 Gram Stain - Preliminary Bronchial Washings - Right Bronchial Washings Culture - Preliminary 06/05/19 13:30 Fungal Culture - Preliminary Bronchial Washings - Right 06/05/19 13:30 Acid Fast Bacilli Culture - Preliminary Bronchial Washings - Right Assessment and Plan Plan: #1 Acute hypoxic respiratory failure secondary to increasing right suprahilar mass which is measuring 7.8 x 5.9 x 7.6 and is encasing the right main pulmonary artery and the right upper lobe pulmonary artery. There is moderate right-sided pleural effusion. There is a 1.3 cm mass in the posterior basal segment of the left lower lobe. There is a 10.3 x 25.4 mm spiculated nodule in the posterior segment of the right upper lobe. Contiguous 10.7 mm lesion in the right upper lobe. #2 Known non-small lung cancer/adenocarcinoma with brain metastasis, has not started treatment yet. Probable immune therapy, and palliative radiotherapy. PD-L1 analysis 80% positive on the tumor proportion score #3 Suspected metastatic brain lesion that has a subtle rounded area with a central bone intensity which may reside in with the gyrus or possible sulcus of the left frontal lobe. #4 Acute exacerbation of chronic obstructive pulmonary disease. #5 History of colitis with profuse diarrhea. #6 Gastric esophageal reflux disease. #7 Hypertension #8 Hypothyroidism. #9 Migraine cephalgia. #10 Degenerative joint disease. Plan: Continue current medical treatment, patient is starting her radiation therapy this afternoon, follow-up chest x-ray has been reviewed, it shows improved aeration of the right lower lung, however there is right upper lobe collapse related to obstruction by a known suprahilar right lung mass. Clinically she is feeling better today, better air entry noted over right lower lung, oxygenation is improving, she is able to tolerate activity better, no acute events o vernight, bronchial lavage cultures are still pending at this time. I performed a history & physical examination of the patient and discussed their management with my nurse practitioner, Elinor Pastor. I reviewed the nurse practitioner's note and agree with the documented findings and plan of care. Lung sounds are positive for mesh breath sounds on the right side throughout the lung [place]. The findings and the impression was discussed with the patient. I attest to the documentation by the nurse practitioner. Time with Patient: Less than 30
--- NOTE | 2019-06-06 15:27 | P.CN ---
Psychiatric Consult - . Consult date: 06/06/19 Consult:: 06/06/19 15:16 Reason for consultation: Anxiety and depression Identifying data: Patient is a 73-year-old female who has history of anxiety and depression. The patient was seen while she was at the medical floor. Chief complaint and history of present illness: The patient was admitted to medical floor because of shortness of breath secondary to lung cancer. Patient reports feeling stable emotionally at the [facility]. She reports when was first admitted she was frustrated because the different doctors covering give her timeline for what interventions and he would start and what they can help her with, but currently she feels better emotionally after her physical symptoms improved. Reportedly the patient had bronchoscopy yesterday and apparently she had some kind of shunt and the airway which helped her to have better breathing and less shortness of breath. Patient reports occasionally feels depressed but denies feeling hopeless, worthless, or suicidal. She denies any history or current symptoms of philippe or psychosis including symptoms of euphoric mood, impulsive/irrational behavior, lack need to sleep due to increased activities, or burst of unusual level of energy. Also denies any history of hallucinations, paranoid ideation, and no delusions could be elicited. She reports intrusive thoughts related to previous psychological trauma which was about the of her son who overdosed on drugs few years ago. She denies any history of self-injurious behavior. Patient reports sometimes feels anxious was increased racing thoughts and difficulty to relax but this times are not often. The patient presented very calm and was showing no signs of irritability or severe anxiety. Past psychiatric history: Previous psychiatric hospitalization: Denies any previous psychiatric hospitalization. Previous suicidal attempts: Denies any previous suicidal attempts. Previous psychiatric treatment: Person has been treated for anxiety and depression symptoms by her PCP and she is currently on Lexapro and Cymbalta. Never received counseling or therapy Substance use history: Nicotine: Quit smoking 30 years ago. Alcohol: Quit alcohol more than 20 years ago. Denies any current or history of using street drugs. Family history of psychiatric illness: Denies any family history of alcohol problems or addiction. Reports her brother committed suicide a few years ago. Brief social history: Patient is for her second for about 24 years. Reports her first marriage was for 28 years and ended by divorce. Had 3 children on one of them a few years ago after overdosed on drugs. Denies any history of legal problems. Mental status examination; Appearance: The patient appears stated age, adequately groomed and dressed, no specific features. Gait/posture: Normal gait, Normal arm swinging: No abnormal movements. Attitude and behavior: engaged, cooperative, eye contact. Motor activity: Normal psychomotor activity Speech: Normal rate, tone. Mood: Anxious Affect: Constricted Thought form: goal-directed, linear, coherent. Thought content: Non-delusional, denies suicidal thoughts, denies homicidal thoughts, denies intentions or plans. Perception: Denies any auditory or visual hallucinations Attention: No impairment. Patient was able to repeat serial 5. Orientation: Patient patient was fully oriented to time place person and situation. Insight: Patient has fair insight about his psychiatric disorder. Judgment: Patient has fair judgment about his psychiatric treatment. Assessment: Adjustment disorder with anxious mood. Unspecified depressive disorder. Unspecified anxiety disorder. Rule out PTSD. Recommendations: Addressed and ensured patient's safety, patient is not actively suicidal, she denies any active plan or intent of suicide. Patient is psychiatrically stable, and does not meet the criteria for psychiatric hospitalization. Discharge of the patient's when medically stable. At this time there is no need for further follow-up by psychiatric team . Medication management: Continue current psychiatric medication Lexapro and Cymbalta. Individual therapy: Patient refused to consider counseling after discharge. Discussed the treatment plan with the requesting physician/service. Brief supportive psychotherapy was provided regarding patient's acute and chronic stress. Psycho-education was provided to the patient. Thank you for permitting me to assist in this patient's treatment. Please call psychiatry department if you have any question or need further help with this case.
--- NOTE | 2019-06-06 15:32 | P.PN ---
Subjective Progress Note Date: 06/06/19 Principal diagnosis: Difficulty in breathing, hypoxia. Metastatic non-small cell lung cancer In follow-up today patient is back on a nasal cannula, she was able to walk back and forth from the bathroom without significant dyspnea, she states feeling better, breathing is more comfortable, hemoptysis is decreasing significantly. She has no other complaints. Objective - Vital Signs Vital signs: Vital Signs Temp 98.1 F 06/06/19 04:48 Pulse 64 06/06/19 12:25 Resp 16 06/06/19 04:48 BP 156/73 06/06/19 04:48 Pulse Ox 97 06/06/19 09:13 Intake & Output 06/05/19 06/06/19 06/06/19 18:59 06:59 18:59 Intake Total 1250 2200 Balance 1250 2200 Intake: IV 650 Intake, IV Titration 600 1250 Amount Sodium Chloride 0.9% 1, 600 1250 000 ml @ 10 mls/hr IV . Q24H BELÉN Rx#:[id number] Oral 950 Other: Voiding Method Bedside Commode Bedside Commode # Voids 1 2 3 # Bowel Movements 1 0 - Constitutional Constitutional Comment(s): Petite General appearance: Present: average body habitus, cooperative, no acute distress - EENT Eyes: Present: anicteric sclerae, EOMI ENT: Present: hearing grossly normal, normal oropharynx - Respiratory Details: Respirations unlabored, patient is able to move her own body weight against gravity without significant respiratory distress today. Respiratory: right: diminished, left: CTA - Cardiovascular Rhythm: regular - Peripheral edema leg Peripheral Edema: bilateral: None - Gastrointestinal General gastrointestinal: Present: normal bowel sounds, soft - Integumentary Integumentary Comment(s): That her color today, pink noted in patients cheeks - Neurologic Neurologic: Present: CNII-XII intact - Musculoskeletal Musculoskeletal: Present: strength equal bilaterally - Psychiatric Psychiatric: Present: A&O x's 3, appropriate affect, intact judgment & insight - Labs CBC & Chem 7: 06/03/19 07:21 06/03/19 07:21 Labs: Microbiology - Last 24 Hours (Table) 06/02/19 10:52 Blood Culture - Preliminary Blood No Growth after 96 hours 06/05/19 13:30 Gram Stain - Preliminary Bronchial Washings - Right Bronchial Washings Culture - Preliminary 06/05/19 13:30 Fungal Culture - Preliminary Bronchial Washings - Right 06/05/19 13:30 Acid Fast Bacilli Culture - Preliminary Bronchial Washings - Right Assessment and Plan (1) Hypoxic Current Visit: Yes Status: Resolved Priority: High Code(s): R09.02 - HYPOXEMIA SNOMED Code(s): 062583989 (2) Metastatic primary lung cancer Narrative/Plan: Guardant 360 testing reveled tumor mutation [id number]. Crizotinib is 1st line FDA approved treatment for MET positive NSCLC. PDL1 is positive at 80% but, immunotherapy is second line when there is mutation targeted therapy. Crizotinib drug monograph left with pt for review, answered a few questions toalexandrea y. Total patient to accept delivery of drug with specialty pharmacy, she states that her can be at home for delivery. Discussed with Radiation Oncologist if concurrent XRT and oral therapy would be too toxic for pt. [place] that pt could start oral treatment as soon as med received as she will likely be at least 1/2 of XRT completed. Will have pt begin crizotinib as soon as it is received. Current Visit: Yes Status: Acute Priority: High Code(s): C34.90 - MALIGNANT NEOPLASM OF UNSP PART OF UNSP BRONCHUS OR LUNG SNOMED Code(s): 88884163 (3) Brain metastases Narrative/Plan: Plan is for SRT 1 dose. This will be done outpatient. Current Visit: Yes Status: Acute Priority: High Code(s): C79.31 - SECONDARY MALIGNANT NEOPLASM OF BRAIN SNOMED Code(s): 16541454 Plan: All pt and her questions and concerns addressed Time with Patient: Greater than 30
[2019-06-06] MEDS: MONTELUKAST 10 MG TAB PO SCH (21:07)
[2019-06-07] MEDS: IPRATROPIUM-ALBUTEROL 3 ML NEB INHALATION SCH ×4 (04:06→16:16)
[2019-06-07] MEDS: LEVOTHYROXINE 50 MCG TAB PO SCH (07:33)
[2019-06-07] MEDS ORDERED: LACTULOSE 20 GM/30 ML CUP PO ONE (08:28)
[2019-06-07] MEDS: SYMBICORT 160-4.5 MCG INHALER INHALATION SCH (08:46)
[2019-06-07] MEDS: predniSONE 20 MG TAB PO SCH (10:13)
[2019-06-07] MEDS: PANTOPRAZOLE 40 MG TABLET PO SCH (10:13)
[2019-06-07] MEDS: METOPROLOL SUCCINATE (ER) 50 MG TAB.ER.24H PO SCH (10:13)
[2019-06-07] MEDS: ACETAMINOPHEN TAB 325 MG TAB PO PRN (10:13)
[2019-06-07] MEDS: DULoxetine HCL 60 MG CAPSULE.DR PO SCH (10:13)
[2019-06-07] MEDS: ESCITALOPRAM 20 MG TAB PO SCH (10:13)
[2019-06-07] MEDS: DIPHENOX-ATROP 2.5-0.025 MG 1 EACH TAB PO SCH ×2 (10:18→15:30)
[2019-06-07 13:34] VITALS: BP 147/67; RESP 18; TEMP 97.6
--- NOTE | 2019-06-07 14:48 | P.PN ---
Subjective Progress Note Date: 06/07/19 Principal diagnosis: Acute hypoxic respiratory failure secondary to increasing right suprahilar mass On 06/05/2017 patient seen in follow-up on oncology floor, she is awake and a lert, however she continues to be very dyspneic with the latest exertion, and apparently she was extremely short of breath even getting up to the commode to use the bathroom. She remains on supplemental oxygen currently on 4 L, with a pulse ox of 92-93%, afebrile, hemodynamically stable, lung sounds reveal diminished air entry on the right. No significant wheezing, cough or congestion, no hemoptysis. She is scheduled for bronchoscopy with BAL today and the possibility of stenting of the right mainstem bronchus/bronchus intermedius. She has been nothing by mouth since midnight, but no acute events overnight, she continues on bronchodilators, oral prednisone. On 06/06/2019 patient seen in follow-up on medical surgical floor. She is breathing easier today, she is able to tolerate more activity, she has been up ambulating to the bathroom, and tolerating activity much better compared to yesterday, yesterday she underwent bronchoscopy with stent placement into her right mainstem bronchus and right intermedius, repeat chest x-ray today has been reviewed showing right upper lobe collapse secondary to the known right suprahilar mass encasing the right main pulmonary artery, and improved aeration of the right lower lung however a spiculated right basilar densities remain with small right pleural effusion. And there is rightward mediastinal shift secondary to the volume loss. The patient remains stable, she is on 4 L of oxygen with a pulse ox of 97%, no fever no chills, lung sounds reveal better air entry noted over right lower lobe appeared to yesterday's exam, no significant cough or congestion. Patient is awaiting radiation therapy today at 2:00 On 06/07/2019 patient seen in follow-up on oncology floor. She had her first radiotherapy treatment yesterday, and another one today, she states her breathing has definitely improved since stenting of the right mainstem bronchus and initiation of radiotherapy. She remains on supplement oxygen currently on 4 L, with a pulse ox of 94%, hemodynamically stable, no fever or chills, lung sounds reveal slightly diminished breath sounds over right lower lobe, however air entry noted bilaterally, no significant rhonchi or wheezes. Bronchial wash cultures showed presumptive staph aureus, however final culture is still pend ing, blood culture showed no growth, no fever, no chills. Clinically remains stable, she has been transitioned to oral prednisone, she remains on nebulized bronchodilators, she is tolerating more activity, and less dyspneic with exertion, patient is being discharged home today, and she is stable for discharge from pulmonary perspective, she will follow up with Dr. Dr. Smiley in the office in one or 2 weeks. Objective - Vital Signs Vital signs: Vital Signs Temp 97.6 F 06/07/19 13:31 Pulse 79 06/07/19 13:31 Resp 18 06/07/19 13:31 BP 147/67 06/07/19 13:31 Pulse Ox 93 L 06/07/19 13:31 Intake & Output 06/06/19 06/07/19 06/07/19 18:59 06:59 18:59 Intake Total 990 Balance 990 Weight 49.442 kg Intake: Oral 990 Other: Voiding Method Bedside Commode # Voids 3 2 # Bowel Movements 0 - Exam GENERAL EXAM: Alert, pleasant, 73-year-old white female patient, on 4 L of oxygen with a pulse ox of 93%, comfortable in no apparent distress. HEAD: Normocephalic/atraumatic. EYES: Normal reaction of pupils, equal size. Conjunctiva pink, sclera white. NOSE: Clear with pink turbinates. THROAT: No erythema or exudates. NECK: No masses, no JVD, no thyroid enlargement, no adenopathy. CHEST: No chest wall deformity. Symmetrical expansion. LUNGS: Equal air entry with improved air entry over right lower lobe, no wheezing rhonchi on the left. CVS: Regular rate and rhythm, normal S1 and S2, no gallops, no murmurs, no rubs ABDOMEN: Soft, nontender. No hepatosplenomegaly, normal bowel sounds, no guarding or rigidity. EXTREMITIES: No clubbing, no edema, no cyanosis, 2+ pulses and upper and lower extremities. MUSCULOSKELETAL: Muscle strength and tone normal. SPINE: No scoliosis or deformity SKIN: No rashes CENTRAL NERVOUS SYSTEM: Alert and oriented -3. No focal deficits, tone is normal in all 4 extremities. PSYCHIATRIC: Alert and oriented -3. Appropriate affect. Intact judgment and insight. - Labs CBC & Chem 7: 06/03/19 07:21 06/03/19 07:21 Labs: Microbiology - Last 24 Hours (Table) 06/05/19 13:30 Gram Stain - Preliminary Bronchial Washings - Right Bronchial Washings Culture - Preliminary Presumptive Staph aureus 06/02/19 10:52 Blood Culture - Preliminary Blood No Growth after 120 hours 06/05/19 13:30 Acid Fast Bacilli Smear - Final Bronchial Washings - Right Acid Fast Bacilli Culture - Preliminary Assessment and Plan Plan: #1 Acute hypoxic respiratory failure secondary to increasing right suprahilar mass which is measuring 7.8 x 5.9 x 7.6 and is encasing the right main pulmonary artery and the right upper lobe pulmonary artery. There is moderate right-sided pleural effusion. There is a 1.3 cm mass in the posterior basal segment of the left lower lobe. There is a 10.3 x 25.4 mm spiculated nodule in the posterior segment of the right upper lobe. Contiguous 10.7 mm lesion in the right upper lobe. #2 Known non-small lung cancer/adenocarcinoma with brain metastasis, has not started treatment yet. Probable immune therapy, and palliative radiotherapy. PD-L1 analysis 80% positive on the tumor proportion score #3 Suspected metastatic brain lesion that has a subtle rounded area with a central bone intensity which may reside in with the gyrus or possible sulcus of the left frontal lobe. #4 Acute exacerbation of chronic obstructive pulmonary disease. #5 History of colitis with profuse diarrhea. #6 Gastric esophageal reflux disease. #7 Hypertension #8 Hypothyroidism. #9 Migraine cephalgia. #10 Degenerative joint disease. Plan: Continue current medical treatment, patient remains stable breathing continues to improve, she is tolerating activity and her exertional dyspnea has improved, vital signs remain stable, bronchial lavage cultures showing presumptive staph, however final cultures are still pending at this time. Clinically is asym ptomatic, no fever or chills, she stable for discharge home today from pulmonary perspective, she has already received 2 radiation treatments, tolerated it well. She will follow up with the radiation and medical oncology, and she will also need a follow-up appointment with Dr. Smiley in one or 2 weeks. I performed a history & physical examination of the patient and discussed their management with my nurse practitioner, lEinor Pastor. I reviewed the nurse practitioner's note and agree with the documented findings and plan of care. Lung sounds are positive for mesh breath sounds on the right side throughout the lung [place]. The findings and the impression was discussed with the patient. I attest to the documentation by the nurse practitioner. Time with Patient: Less than 30
--- NOTE | 2019-06-07 15:15 | P.DS ---
Providers Date of admission: 06/02/19 13:32 Expected date of discharge: 06/07/19 Attending physician: Veronica Spicer MD Consults: 06/02/19 13:32 Consult Physician Urgent Consulting Provider: Zachary Conklin Consult Reason/Comments: Metastatic lung cancer Do you want consulting provider notified?: Yes Consult Physician Urgent Consulting Provider: Levy Smiley Consult Reason/Comments: Hypoxia, dyspnea, metastatic lung cancer Do you want consulting provider notified?: Yes 06/02/19 13:53 Consult Physician Urgent Consulting Provider: Levy Smiley Consult Reason/Comments: dyspnea, hypoxia, lung cancer Do you want consulting provider notified?: Yes 06/02/19 13:54 Consult Physician Urgent Consulting Provider: Zachary Conklin Consult Reason/Comments: lung cancer, dyspnea, hypoxia Do you want consulting provider notified?: Yes 06/03/19 10:38 Consult Physician Urgent Consulting Provider: Otoniel Samuel Consult Reason/Comments: lung tumor Do you want consulting provider notified?: Yes 06/04/19 09:38 Consult Physician Routine Consulting Provider: Ye Acuna Consult Reason/Comments: anxiety and depression Do you want consulting provider notified?: Yes Primary care physician: Joni Wong [facility] Course: This is a 73-year-old female with past medical history significant for recently diagnosed non-small cell lung adenocarcinoma with brain metastasis, underlying COPD, essential hypertension, and hypothyroidism who presented to the hospital with worsening shortness of breath and dyspnea. Patient was evaluated and was found to have acute exacerbation of underlying COPD. Patient had a prolonged hospital stay and was seen by hematology and oncology. She underwent a bronchoscopy with the parking go for endobronchial tumor that was obstructing the right main bronchus and also underwent a successful stent placement to the bronchus intermedius. Patient was also started on radiation therapy. She tolerated her treatment well on 06/07. She was treated for underlying COPD exacerbation with bronchodilators and steroids. Her overall condition improved significantly throughout her hospital stay. Home oxygen was set up for her. Benjie faith would be discharged home in a stable condition. She will follow-up closely with pulmonology and oncology as directed. Plan to start oral chemotherapy as an outpatient. For further details about this hospitalization please refer to the electronic chart. Patient Condition at Discharge: Fair Plan - Discharge Summary Discharge Rx Participant: No New Discharge Prescriptions: Continue Metoprolol Succinate (ER) [Toprol XL] 50 mg PO DAILY Omeprazole 20 mg PO DAILY Montelukast [Singulair] 10 mg PO DAILY Budesonide-Formot 160-4.5 Mcg [Symbicort 160-4.5 Mcg Inhaler] 2 puff INHALATION RT-BID Levothyroxine Sodium [Synthroid] 50 mcg PO DAILY Multivitamins, Thera [Multivitamin (formulary)] 1 tab PO DAILY Calcium Carbonate [Calcium] 600 mg PO DAILY Diphenox-Atrop 2.5-0.025 mg [Lomotil] 2 tab PO TID Escitalopram [Lexapro] 20 mg PO DAILY Budesonide [Budesonide EC] 9 mg PO W/KFST Prochlorperazine Maleate 10 mg PO Q6H PRN PRN Reason: Nausea Folic Acid 1 mg PO DAILY DULoxetine HCL [Cymbalta] 60 mg PO DAILY Discharge Medication List Budesonide-Formot 160-4.5 Mcg [Symbicort 160-4.5 Mcg Inhaler] 2 puff INHALATION RT-BID 01/04/18 [History] Calcium Carbonate [Calcium] 600 mg PO DAILY 01/04/18 [History] Levothyroxine Sodium [Synthroid] 50 mcg PO DAILY 01/04/18 [History] Metoprolol Succinate (ER) [Toprol XL] 50 mg PO DAILY 01/04/18 [History] Montelukast [Singulair] 10 mg PO DAILY 01/04/18 [History] Multivitamins, Thera [Multivitamin (formulary)] 1 tab PO DAILY 01/04/18 [History] Omeprazole 20 mg PO DAILY 01/04/18 [History] Diphenox-Atrop 2.5-0.025 mg [Lomotil] 2 tab PO TID 05/02/19 [History] Budesonide [Budesonide EC] 9 mg PO W/BRKFST 06/02/19 [History] DULoxetine HCL [Cymbalta] 60 mg PO DAILY 06/02/19 [History] Escitalopram [Lexapro] 20 mg PO DAILY 06/02/19 [History] Folic Acid 1 mg PO DAILY 06/02/19 [History] Prochlorperazine Maleate 10 mg PO Q6H PRN 06/02/19 [History] Follow up Appointment(s)/Referral(s): Joni Wong MD [Primary Care Provider] - 1-2 days Activity/Diet/Wound Care/Special Instructions: home o2 test requested from nurse. Discharge Disposition: HOME WITH HOME HEALTH SERVICES
[2019-06-07] MEDS: SODIUM CHLORIDE 0.9% 1,000 ML IV SCH (15:30)
[2019-06-07 16:21] VITALS: PULSE 80
== END 2019-06-07 18:25 | disposition home health service (06) | DRG 180 ==
LOC: EC 10:15 → 3NMEDONC 13:32
PROVIDERS: ADMIT Family Medicine; ATTEND Family Medicine
PROC: 0B738DZ Dilation of Right Main Bronchus with Intraluminal Device, Via Natural or Artificial Opening Endoscopic (ICD-10-PCS; principal; 2019-06-06)
PROC: 0B9F8ZX Drainage of Right Lower Lung Lobe, Via Natural or Artificial Opening Endoscopic, Diagnostic (ICD-10-PCS; 2019-06-06)
PROC: DB021ZZ Beam Radiation of Lung using Photons 1 - 10 MeV (ICD-10-PCS; 2019-06-06)
DX: C34.01 Malignant neoplasm of right main bronchus (principal); J96.01 Acute respiratory failure with hypoxia; I31.3 Pericardial effusion (noninflammatory); R04.2 Hemoptysis; C79.72 Secondary malignant neoplasm of left adrenal gland; C79.71 Secondary malignant neoplasm of right adrenal gland; C79.31 Secondary malignant neoplasm of brain; E87.2 Acidosis; J44.1 Chronic obstructive pulmonary disease with (acute) exacerbation; J90 Pleural effusion, not elsewhere classified; J98.11 Atelectasis; Z87.891 Personal history of nicotine dependence; E03.9 Hypothyroidism, unspecified; E86.0 Dehydration; F32.9 Major depressive disorder, single episode, unspecified; F41.9 Anxiety disorder, unspecified; G43.909 Migraine, unspecified, not intractable, without status migrainosus; I10 Essential (primary) hypertension; K21.9 Gastro-esophageal reflux disease without esophagitis; K52.9 Noninfective gastroenteritis and colitis, unspecified; M47.9 Spondylosis, unspecified; R93.89 Abnormal findings on diagnostic imaging of other specified body structures; T38.0X5A Adverse effect of glucocorticoids and synthetic analogues, initial encounter; Z79.51 Long term (current) use of inhaled steroids; Z79.890 Hormone replacement therapy; Z79.899 Other long term (current) drug therapy; Z90.710 Acquired absence of both cervix and uterus; Z90.49 Acquired absence of other specified parts of digestive tract; Z53.09 Procedure and treatment not carried out because of other contraindication
CPT/HCPCS: 31624; 31641; 36415; 71045; 71046; 71275; 77290; 77295; 77300; 77332; 77334; 77370; 77412; 77417; 80048; 80053; 83605; 83735; 83880; 84484; 85025; 85379; 85610; 85730; 87040; 87070; 87077; 87102; 87116; 87186; 87205; 87206; 87252; 87496; 87498; 87502; 87529; 87634; 87798; 88108; 88305; 93005; 94640; 94760; 96365; 96366; 96368; 96375; 99291

== ENCOUNTER → 2019-06-28 | Outpatient (CLI) | payer MEDICARE, BC ==
--- NOTE | 2019-06-28 12:19 | MR ---
EXAMINATION TYPE: MR brain wo/w con DATE OF EXAM: 06/28/2019 COMPARISON: Prior MRI brain May 20, 2019. HISTORY: Mets, Lung CA TECHNIQUE: Multiplanar, multisequence images of the brain and brainstem is performed without and with IV contras t, utilizing 5 mL intravenous Gadavist . FINDINGS: Diffusion weighted images demonstrate no evidence of a recent infarct or other diffusion ab normality. There is no worrisome extra-axial fluid collection. Stable mild ventricular and sulcal pr ominence. Stable scattered small foci of T2 hyperintensity seen throughout the white matter bilateral ly. Proximally 20 small scattered lesions are seen. Largest lesion right deep frontal 6 mm lesion axi al image 31 is stable. Findings presume the basis of prominent chronic small vessel ischemic change o f patient this age. Midline structures demonstrate normal morphology. The craniocervical junction appears within normal limits. The dural venous sinuses appear patent. The visualized sinuses are clear and the globes are i ntact. Increased fluid signal right mastoid air cells remains present. Previously visualized thin rim-enhancing 5 mm lesion or area left frontal subcortical level is less w ell seen but still identified axial image 15 where there is subtle T2 hyperintensity identified on cu rrent study FLAIR image 42 which is less prominent from prior FLAIR images. There is new subtle area of curvilinear enhancement I right frontoparietal junction axial image 66 without T2 signal measuring roughly 5 x 2 mm corresponding to coronal image 50 and sagittal image 108 may be dural based. No def initive additional or new areas of enhancement identified. No new dural nodular enhancement otherwise seen. IMPRESSION: Previously visualized 5 mm subcortical left frontal lesion is still subtly visualized but less prominent from prior study. There is new tiny curvilinear high right frontal extra-axial probab le dural focus noted on current study.
== END | disposition home or self-care (01) ==
LOC: RADMRIMAIN 11:05
PROVIDERS: ATTEND Radiology Radiation Oncology
DX: G93.89 Other specified disorders of brain (principal); C34.11 Malignant neoplasm of upper lobe, right bronchus or lung; C79.72 Secondary malignant neoplasm of left adrenal gland
CPT/HCPCS: 70553

== ENCOUNTER → 2019-07-05 | Outpatient (CLI) | payer MEDICARE, BC ==
--- NOTE | 2019-07-05 11:28 | XR ---
EXAMINATION TYPE: XR chest 2V DATE OF EXAM: 07/05/2019 COMPARISON: 06/06/2019 TECHNIQUE: PA and lateral views submitted. HISTORY: 06/06/2019 FINDINGS: Interval resolution of right upper lobe findings with persistent right hilar soft tissue density and lower lobe infiltrate and pleural effusion. Left lung clear with evidence of COPD. No pneumothorax. IMPRESSION: 1. Interval resolution of right upper lobe consolidation. Persisting right lower lobe consolidation a nd pleural effusion. 2. Right hilar soft tissue prominence underlying mass in the differential diagnosis.
== END ==
LOC: RADXRMAIN 10:33
PROVIDERS: ATTEND Radiology Radiation Oncology
DX: J90 Pleural effusion, not elsewhere classified (principal); C34.11 Malignant neoplasm of upper lobe, right bronchus or lung; C79.72 Secondary malignant neoplasm of left adrenal gland
CPT/HCPCS: 71046

== ENCOUNTER → 2019-07-10 | Outpatient (CLI) | payer MEDICARE, BC ==
[2019-07-10 14:12] LABS: African American GFR (CKD) >90 (>60 ml/min/1.73 sqM); Blood Urea Nitrogen 10 mg/dL (7-17); Non-African American GFR(CKD) 80 (>60 ml/min/1.73 sqM)
--- NOTE | 2019-07-10 15:23 | CT ---
EXAMINATION TYPE: CT angio chest DATE OF EXAM: 07/10/2019 COMPARISON: 04/20/2019 HISTORY: Increased difficulty breathing since prior. CT DLP: 307 mGycm CONTRAST: CT chest with contrast and 3D reconstruction with MIP imaging is performed with IV Contrast, patient injected with 100 mL of Isovue 370. Contrast-enhanced CT of the chest was performed through the course of the pulmonary arteries with zoey g and mediastinal window settings submitted. 3D reconstruction with MIP imaging was also performed. PULMONARY ARTERIES: There is a filling defect within 2 second order left lower lobe pulmonary arteria l branches. No additional filling defects are seen. Findings compatible with pulmonary embolism. No e vidence of saddle component. LUNGS: Right suprahilar and perihilar mass redemonstrated. Interval placement of right lower lobe bro nchial stent. Stent is filled with debris. Occlusion is difficult to exclude. There is right lower lo be volume loss which is a new finding relative to the prior examination as well as moderate to large right-sided pleural effusion measuring 4.0 cm. MEDIASTINUM: Thoracic aorta is of normal caliber,however, evaluation is limited given timing of the contrast bolus. If there is concern for thoracic aortic pathology consider GABRIELLE. Correlate clinicall y . The heart is not enlarged. Mediastinal adenopathy noted with right paratracheal soft tissue measu ring 2.8 cm AP dimension. Subcarinal soft tissue noted measuring 1.8 cm. UPPER ABDOMEN: Left adrenal mass compatible with metastatic lesion. IMPRESSION: 1. Filling defects noted within 2 second order left lower lobe pulmonary arterial branches compatibl e with pulmonary embolism. 2. Persistent right suprahilar/right perihilar mass with interval placement of right lower lobe bronc hial stent. Stent is filled with debris and I suspect occlusion. There is a new area of moderate size d atelectasis right lower lobe as well as moderate to severe right lower lobe pleural effusion.
== END | disposition home or self-care (01) ==
LOC: RADCTMAIN 13:29
PROVIDERS: ATTEND Radiology Radiation Oncology
DX: J90 Pleural effusion, not elsewhere classified (principal); I26.99 Other pulmonary embolism without acute cor pulmonale; C34.11 Malignant neoplasm of upper lobe, right bronchus or lung; C79.72 Secondary malignant neoplasm of left adrenal gland
CPT/HCPCS: 82565; 84520; 71275; 36415; Q9967

== ENCOUNTER 2019-07-12 11:26 | Day surgery (SDC) | payer MEDICARE, BC ==
[~2019-07-12 11:26] MED LIST changes: -DEXAMETHASONE SOD PHOSPHATE 10 MG/ML 1 ML VIAL IV ONE; -HYDROmorphone 0.5 MG/0.5 ML SYRINGE IVP PRN; -LACTATED RINGERS 1,000 ML IV ONE; -LACTATED RINGERS 1,000 ML IV SCH; -LIDOCAINE 1% 20 ML VIAL (10MG/ML) FOR IV START INTRADERMA ONE; -LIDOCAINE 1% INJ 10MG/ML (20 ML MDV) ONE; -MIDAZOLAM 2 MG/2 ML VIAL IV PRN; -MIDAZOLAM 2 MG/2 ML VIAL ONE; -ONDANSETRON 4 MG/2 ML VIAL IVP ONE; -PROPOFOL 10 MG/ML 20 ML VIAL IV ONE; -SUCCINYLCHOLINE CHLORIDE 100 MG/5 ML SYR IV ONE; -fentaNYL (PF) 50 MCG/ML 2 ML AMP ONE
[2019-07-12 11:57] VITALS: TEMP 97
[2019-07-12 12:07] VITALS: BMI 19.5
--- NOTE | 2019-07-12 13:22 | US ---
EXAMINATION TYPE: US chest DATE OF EXAM: 07/12/2019 COMPARISON: CT dated 07/10/2019 CLINICAL HISTORY: Right pleural effusion. SOB, pleural effusion TECHNIQUE: Targeted ultrasound of the posterior lower Right EXAM MEASUREMENTS: Right Pleural Effusion pocket size: 11.9 cm Right skin surface to fluid distance: 2.9 cm Right side marked for possible thoracentesis outside the dept. Pulmonologists are able to review the images in the patient?s EMR. IMPRESSIONS: Large right pleural effusion
[2019-07-12] MEDS ORDERED: MIDAZOLAM 2 MG/2 ML VIAL ONE (13:44)
[2019-07-12] MEDS ORDERED: KETAMINE 10 MG/ML 20 ML VIAL ONE (13:44)
[2019-07-12] MEDS ORDERED: PROPOFOL 10 MG/ML 20 ML VIAL IV ONE (13:44)
[2019-07-12] MEDS ORDERED: fentaNYL (PF) 50 MCG/ML 2 ML AMP ONE (13:44)
[2019-07-12] MEDS ORDERED: LIDOCAINE 2% INJ 20 MG/ML INTRATRACH ONE (13:56)
--- NOTE | 2019-07-12 14:08 | PCN ---
PROCEDURE NOTE PROCEDURE: Right-sided thoracentesis. PREOPERATIVE DIAGNOSIS: Right pleural effusion. POSTOPERATIVE DIAGNOSIS: Right pleural effusion. A time-out was completed verifying correct patient, procedure, site, positioning , and implant (s) or special equipment if applicable. The right posterior chest wall was marked by ultrasound and appropriate fluid pocket was identified and marked. Patient was positioned, prepped and draped in usual sterile fashion. Lidocaine was used to anesthetize the area. A Thoracentesis catheter was introduced into the pleural space and fluid was removed. Blood loss was none. A chest x-ray was ordered to evaluate for pneumothorax. Total Fluid Removed 1300 mL Color of Fluid: Yellow thin fluid Fluid was not sent for appropriate laboratory tests. Patient tolerated the procedure well and there were no complications. OPERATORS: Dr. Smiley, Dr. Sneed and Kyle Pastor. The fluid will not be sent for analysis. The patient tolerated the procedure well. A chest x-ray will be done prior to discharge to just make sure there was no complication. Again, the patient was very stable throughout the procedure and tolerated the procedure well. MMODL / IJN: [id number] /
[2019-07-12 14:19] VITALS: RESP 16
--- NOTE | 2019-07-12 14:29 | PCN ---
PROCEDURE NOTE PROCEDURE: Bronchoscopy airway examination, therapeutic lavage, BAL. PREOPERATIVE DIAGNOSIS: Lung cancer, status post stent placement, retained secretions. POSTOPERATIVE DIAGNOSIS: Lung cancer, status post stent placement, retained secretions. ROTARY LITHOGRAPHIC PRESS OPERATOR: Dr. Smiley, Dr. Sneed and Kyle Pastor. ANESTHESIA: Provided unconscious sedation and general anesthesia. PROCEDURE DESCRIPTION: The patient's procedure was done in room #1. There was informed consent and universal timeout. After the patient was adequately sedated, the bronchoscope was inserted through the right nostril. It passed through the right nasopharynx into the oropharynx. The hypopharynx was identified and topicalized. The hypopharyngeal structures appeared normal including anterior commissure, true cords, false cords, arytenoids, pyriform sinuses, right and left valleculae and epiglottis. After topicalization, the bronchoscope was pushed through the glottic opening into the trachea. Trachea appeared normal. The left lung appeared normal. On the right side, there was complete or near-complete obstruction of right upper lobe. This was obstructed by tumor mass. In the bronchus intermedius going down to the middle lobe and lower lobe, there was a patent metal stent present. There were some secretions attached to the stent, but they were easily suctioned. I could see the middle lobe in the lower lobe clearly through the proximal portion of the stent. The patient tolerated the procedure well. The fluid was obtained from the bronchus intermedius. It will be sent for analysis including cytology and microbiology. The bronchoscope withdrawn. There was no immediate complication. The patient will be recovered. MMODL / IJN: [id number] /
[2019-07-12 14:34] VITALS: BP 108/61; PULSE 86
--- NOTE | 2019-07-12 14:44 | XR ---
EXAMINATION TYPE: XR chest 1V portable DATE OF EXAM: 07/12/2019 COMPARISON: Prior chest x-ray 07/05/2019 HISTORY: Status post right thoracentesis TECHNIQUE: Single frontal view of the chest is obtained. FINDINGS: There is interval improved visualization of a portion of the right hemidiaphragm. Patchy i ncreased density persists at the right lung base. There is a rounded density in the mid lung measurin g approximately 3.6 cm. No evident pneumothorax. IMPRESSION: No evident complication status post right thoracentesis.
[2019-07-12 18:25] LABS: Appearance,BF Cloudy; Color,BF Colorless; Nucleated Cells, Body Fluid 860 /uL; RBC, Body Fluid 55 /uL
[2019-07-12 18:32] LABS: Mononuclear WBC,Body Fluid 12 %; Polynuclear WBC,Body Fluid 88 %; Total Cells Counted,Body Fluid 100
== END 2019-07-12 15:25 | disposition home or self-care (01) ==
LOC: ORWHC2ENDO 11:26
PROVIDERS: ATTEND Internal Medicine Critical Care Medicine
DX: J20.9 Acute bronchitis, unspecified (principal); J90 Pleural effusion, not elsewhere classified; C34.90 Malignant neoplasm of unspecified part of unspecified bronchus or lung; I10 Essential (primary) hypertension; J44.9 Chronic obstructive pulmonary disease, unspecified; E07.9 Disorder of thyroid, unspecified; K21.9 Gastro-esophageal reflux disease without esophagitis; Z96.89 Presence of other specified functional implants; Z87.891 Personal history of nicotine dependence; Z79.899 Other long term (current) drug therapy; Z79.890 Hormone replacement therapy; Z79.51 Long term (current) use of inhaled steroids; Z90.49 Acquired absence of other specified parts of digestive tract; Z90.710 Acquired absence of both cervix and uterus; Z90.89 Acquired absence of other organs
CPT/HCPCS: 87496; 94640; 87798 ×3; 87529; 87634; 87498; 88108; 88305; 89050; 87252; 87502; 87070; 87205; 87116; 87102; 87206; 71045; 76604; 31624; 32555; J2001 ×2; J2250; J0461; J3010; J2704

== ENCOUNTER → 2019-07-25 | Outpatient (CLI) | payer MEDICARE, BC ==
[2019-07-25 15:01] LABS: HCT 32.5 % (34.0-46.0); HGB 10.4 gm/dL (11.4-16.0); MCH 29.2 pg (25.0-35.0); MCHC 31.8 g/dL (31.0-37.0); Mean Platelet Volume 7.5; Platelet Count 521 k/uL (150-450); RBC 3.55 m/uL (3.80-5.40); RDW 13.7 % (11.5-15.5); WBC 8.5 k/uL (3.8-10.6)
[2019-07-25 15:10] LABS: Prothrombin Time 10.6 sec (9.0-12.0)
[2019-07-25 15:11] LABS: Potassium 3.7 mmol/L (3.5-5.1)
--- NOTE | 2019-07-25 15:12 | CONS ---
CONSULTATION DATE OF CONSULTATION: 07/25/2019 DATE OF DICTATION: 07/25/2019 REASON FOR CONSULTATION: Recurrent metastatic pleural effusion on the right. REQUEST PHYSICIAN: Dr. Smiley PRIMARY CARE PHYSICIAN: Dr. Joni Wong. BRIEF HISTORY: Patient is a 73-year-old female with stage IV metastatic lung cancer. She has undergone radiation treatment to her brain. She is undergoing chemotherapy. Discussion is being held as to whether to start Entresto. The patient had a large right pleural effusion drained on July 12. 1300 mL of fluid was drained. The patient felt better following the drainage. She is currently having increased symptomatology. This is consistent with recurrent pleural effusion. Lung [place] are decreased on the right side at the bases. Heart rate and rhythm are regular. Discussion was held with the patient concerning the indications for PleurX catheter placement. The usual perioperative course and benefits thereof. The patient at this point is seeking primarily palliative care, but would like to be able to breathe easier and thinks the PleurX catheter seems reasonable. I am out of town next week. I will schedule for the week following the try to get one of my partners to do the procedure next week. The patient left the office in good spirits and ready for PleurX catheter implantation. MMODL / IJN: [id number] /
[2019-07-25 15:16] LABS: MCV 91.6 fL (80.0-100.0)
[2019-07-25 15:25] LABS: Partial Thromboplastin Time 18.5 sec (22.0-30.0)
[2019-07-25 15:38] LABS: Band Neutrophils % 3 %; Eosinophils # (M) 0.17 k/uL (0-0.7); Monocytes # (M) 0.09 k/uL (0-1.0); Neutrophils % (M) 87 %; Nucleated Red Blood Cells 0 /100 WBC (0-0); Total Cells Counted 100
[2019-07-25 15:42] LABS: Poikilocytosis (M) Present
== END | disposition home or self-care (01) ==
LOC: LABPAT 14:02
PROVIDERS: ATTEND Thoracic Surgery (Cardiothoracic Vascular Surgery)
DX: Z01.818 Encounter for other preprocedural examination (principal); Z01.812 Encounter for preprocedural laboratory examination; E87.8 Other disorders of electrolyte and fluid balance, not elsewhere classified; R58 Hemorrhage, not elsewhere classified; J90 Pleural effusion, not elsewhere classified; R53.83 Other fatigue
CPT/HCPCS: 80051; 82565; 82947; 84520; 85025; 85610; 85730; 93005

== ENCOUNTER → 2019-07-29 | Day surgery (SDC) | payer MEDICARE, BC ==
[2019-07-26 10:19] VITALS: BMI 18.7
[~2019-07-29] MED LIST changes: -ALBUTEROL NEB (CONC) 2.5 MG/0.5 ML INHALATION ONE; -ATROPINE SULFATE 0.4 MG/ML 1 ML VIAL IM ONE; +DEXAMETHASONE SOD PHOSPHATE 10 MG/ML 1 ML VIAL IV ONE; +HYDROmorphone 0.5 MG/0.5 ML SYRINGE IVP PRN; +LACTATED RINGERS 1,000 ML IV SCH; +LIDOCAINE 1% 20 ML VIAL (10MG/ML) FOR IV START INTRADERMA ONE; +LIDOCAINE 1% INJ 10MG/ML (20 ML MDV) SQ ONE; -LIDOCAINE 2% (PF) 20 MG/ML 5 ML VIAL INHALATION ONE; -LIDOCAINE VISCOUS 300 MG/15 ML CUP MUCOUS MEM ONE; +MIDAZOLAM 2 MG/2 ML VIAL ONE; +ONDANSETRON 4 MG/2 ML VIAL IVP ONE; +PROPOFOL 10 MG/ML 20 ML VIAL IV ONE; -SODIUM CHLORIDE 0.9% 1,000 ML IV SCH; +fentaNYL (PF) 50 MCG/ML 2 ML AMP ONE
[2019-07-29 07:54] VITALS: TEMP 97.1
[2019-07-29 09:19] VITALS: RESP 17
[2019-07-29 09:37] VITALS: BP 138/65; PULSE 55
--- NOTE | 2019-07-29 10:04 | XR ---
EXAMINATION TYPE: XR chest 1V portable DATE OF EXAM: 07/29/2019 COMPARISON: 07/12/2019 HISTORY: Pleural catheter placement. TECHNIQUE: Single frontal view of the chest is obtained. FINDINGS: Right thoracostomy tube has been placed abutting the mediastinal border near the right shah[place] n pulmonary artery. Paucity of lung markings is seen over the lateral right lower lung that may relat e to a small pneumothorax or patient's underlying emphysematous change. Moderate right pleural effusi on has increased in the interim with associated right basilar airspace disease. Platelike atelectasis at the left costophrenic angle. Cardiomediastinal silhouette is obscured. Diffuse osseous deminerali zation is seen. IMPRESSION: Possible small right pneumothorax status post thoracostomy tube placement with increasin g moderate right pleural effusion and right basilar airspace disease.
--- NOTE | 2019-07-29 10:24 | OP ---
OPERATIVE REPORT DATE OF SURGERY: 07/29/2019 PREOPERATIVE DIAGNOSIS: Recurrent right pleural effusion. POSTOPERATIVE DIAGNOSIS: Recurrent right pleural effusion. PROCEDURE: Placement of right PleurX catheter under fluoroscopic guidance. SURGEON: Farhat Dickerson MD. DIESEL ENGINE ERECTOR: DON Broderick. ANESTHESIA: Local with IV sedation. SPECIMEN: Pleural fluid. ESTIMATED BLOOD LOSS: Minimal. COMPLICATIONS: None. INDICATION: The patient is a 73-year-old female with a known history of metastatic right lung cancer. She has had recurrent right-sided pleural effusions requiring multiple drainage procedures. Placement of a right PleurX catheter was recommended. The risks, benefits, and alternatives of this procedure were discussed with the patient. All of her questions were answered. Consent was obtained. FINDINGS: Approximately 1000 mL of serous fluid was drained from the right pleural space. PROCEDURE IN DETAIL: The patient was taken to the operating room and placed supine on the operating table. IV sedation was administered. The right chest and flank were prepped and draped in the usual sterile fashion. Using local anesthetic and a finder needle, a sample of the right pleural fluid was accessed along the right mid axillary line. A guidewire was placed and its position confirmed to be in the right pleural space using fluoroscopy. Additional local anesthetic was infiltrated in the skin and subcutaneous tissue. A counter incision was created and the PleurX catheter was tunneled through the subcutaneous tissue between the 2 incisions. Again, using fluoroscopic guidance, and standard Seldinger technique, a dilator was placed over the guidewire followed by a break away sheath. The PleurX catheter was then introduced into the right pleural space without difficulty. Followup imaging studies revealed good placement of the PleurX catheter in the right pleural space. Approximately 1000 mL of serous fluid was then drained without difficulty. The more posterior incision was closed with interrupted Vicryl suture. The PleurX catheter was attached to the skin using a silk suture. Sterile dressings were applied. The patient appeared to tolerate the procedure well. No immediate complications. She returned to the recovery room in stable condition. MMODL / IJN: [id number] / [facility]
--- NOTE | 2019-07-29 11:24 | FL ---
EXAMINATION TYPE: FL guidance operating room DATE OF EXAM: 07/29/2019 HISTORY: Flouroscopy time 12 seconds of fluoroscopy provided. IMPRESSION: 1. Fluoroscopy time.
== END | disposition home health service (06) ==
LOC: OR 07:19
PROVIDERS: ATTEND Surgery
DX: J90 Pleural effusion, not elsewhere classified (principal); C78.01 Secondary malignant neoplasm of right lung; I10 Essential (primary) hypertension; E78.5 Hyperlipidemia, unspecified; J44.9 Chronic obstructive pulmonary disease, unspecified; E07.9 Disorder of thyroid, unspecified; K21.9 Gastro-esophageal reflux disease without esophagitis; Z92.3 Personal history of irradiation; Z92.21 Personal history of antineoplastic chemotherapy; Z99.81 Dependence on supplemental oxygen; Z87.891 Personal history of nicotine dependence; Z79.51 Long term (current) use of inhaled steroids; Z79.890 Hormone replacement therapy; Z79.899 Other long term (current) drug therapy; Z90.89 Acquired absence of other organs; Z98.890 Other specified postprocedural states; Z90.710 Acquired absence of both cervix and uterus
CPT/HCPCS: 32557; 88108; 88305; 71045; J2250; J0690; J2405; J2001; J3010; J2704

== ENCOUNTER → 2019-08-05 | Outpatient (CLI) | payer MEDICARE, BC ==
--- NOTE | 2019-08-05 12:43 | XR ---
EXAMINATION TYPE: XR chest 2V DATE OF EXAM: 08/05/2019 COMPARISON: 07/29/2019 TECHNIQUE: PA and lateral views submitted. HISTORY: Chest tube FINDINGS: Right-sided consolidation and pleural effusion slightly progressed. Right-sided chest tube remains in position. No sizable pneumothorax. Left lung clear. Volume loss on the right with deviation of media stinal structures from left to right. Suggestion of possible bronchial stent on the right. IMPRESSION: 1. Mild progression pleural-parenchymal changes on the right.
== END | disposition home or self-care (01) ==
LOC: RADXRMAIN 11:40
PROVIDERS: ATTEND Surgery
DX: J90 Pleural effusion, not elsewhere classified (principal); R91.8 Other nonspecific abnormal finding of lung field; J98.59 Other diseases of mediastinum, not elsewhere classified; Z96.89 Presence of other specified functional implants
CPT/HCPCS: 71046

== ENCOUNTER → 2019-10-10 | Outpatient (CLI) | payer MEDICARE, BC ==
[2019-10-10 16:50] LABS: Basophils % (A) 0 %; Eosinophils # (A) 0.1 k/uL (0-0.7); Eosinophils % (A) 1 %; HCT 33.1 % (34.0-46.0); HGB 10.5 gm/dL (11.4-16.0); Lymphocytes # (A) 0.5 k/uL (1.0-4.8); Lymphocytes % (A) 5 %; MCH 31.7 pg (25.0-35.0); MCHC 31.7 g/dL (31.0-37.0); MCV 99.8 fL (80.0-100.0); Mean Platelet Volume 6.8; Monocytes # (A) 0.3 k/uL (0-1.0); Monocytes % (A) 3 %; Neutrophils # (A) 8.8 k/uL (1.3-7.7); Neutrophils % (A) 90 %; Platelet Count 202 k/uL (150-450); RBC 3.32 m/uL (3.80-5.40); RDW 14.3 % (11.5-15.5); WBC 9.8 k/uL (3.8-10.6)
[2019-10-10 16:56] LABS: African American GFR (CKD) >90 (>60 ml/min/1.73 sqM); Anion Gap 0 mmol/L; Blood Urea Nitrogen 15 mg/dL (7-17); Carbon Dioxide 39 mmol/L (22-30); Chloride 97 mmol/L (98-107); Glucose 118 mg/dL (74-99); Non-African American GFR(CKD) 86 (>60 ml/min/1.73 sqM); Potassium 3.2 mmol/L (3.5-5.1); Sodium 136 mmol/L (137-145)
[2019-10-10 17:07] LABS: Partial Thromboplastin Time 21.1 sec (22.0-30.0)
== END | disposition home or self-care (01) ==
LOC: LABPAT 16:09
PROVIDERS: ATTEND Surgery
DX: Z01.818 Encounter for other preprocedural examination (principal); J90 Pleural effusion, not elsewhere classified
CPT/HCPCS: 36415; 80051; 82565; 82947; 84520; 85025; 85610; 85730